=== PATIENT | male | born 1940 | race Caucasian/White ===

== ENCOUNTER 2021-02-15 10:08 | Outpatient (REF) | payer MEDICARE, OTHER, SELFPAY ==
--- NOTE | ~2021-02-15 | US_ITS ---
EXAMINATION: US EXTRACRANIAL CAROTID DUPLEX, BILATERAL CLINICAL INFORMATION: Infarct COMPARISON: Previous carotid ultrasound exam December 2019 TECHNIQUE: Real-time ultrasound and Doppler techniques (integrating B-mode 2-D vascular images, Doppler spectral analysis and color-flow Doppler imaging) were utilized to interrogate the extracranial carotid arteries, the vertebral arteries and proximal subclavian arteries bilaterally. The degree of stenosis is determined by criteria similar to NASCET. FINDINGS: Right Side: 1. There is moderate atherosclerotic plaque seen in the bifurcation/proximal ICA region. 2. The common carotid artery PSV proximally is 111 cm/s and distally 96 cm/s. 3. The proximal internal carotid artery velocities are 183 cm/s systolic and 49 cm/s diastolic. 4. The proximal external carotid artery PSV is elevated measuring 288 cm/s. 5. The vertebral artery shows antegrade flow. 6. The subclavian artery waveforms are normal. Left Side: 1. There is mild atherosclerotic plaque seen in the bifurcation/proximal ICA region. 2. The common carotid artery PSV proximally is 132 cm/s and distally 93 cm/s. 3. The proximal internal carotid artery velocities are 59 cm/s systolic and 19 cm/s diastolic. 4. The proximal external carotid artery PSV is 109 cm/s. 5. The vertebral artery shows antegrade flow. 6. The subclavian artery waveforms are normal. US/US carotid duplex BI IMPRESSION: 1. RIGHT: Moderate plaque. 50-79% right ICA stenosis. Right ECA stenosis. 2. LEFT: Mild plaque. 0-49% left ICA stenosis. 3. There is no change in the category severity of disease when compared to the previous study dated December 2019.
== END 2021-02-15 10:09 | disposition home or self-care (01) ==
LOC: HO.US 10:08
PROVIDERS: PCP Surgery Vascular Surgery; Visit Provider Surgery Vascular Surgery
DX: Z86.73 Personal history of transient ischemic attack (TIA), and cerebral infarction without residual deficits (principal)
CPT/HCPCS: 93880

== ENCOUNTER → 2021-03-21 14:18 | Outpatient (BNVA) | payer MEDICARE, OTHER, SELFPAY | PROVIDERS: Visit Provider Surgery Vascular Surgery | DX: I65.23 Occlusion and stenosis of bilateral carotid arteries (principal) | CPT/HCPCS: 99212 ==

== ENCOUNTER 2022-04-05 14:07 | Outpatient (REF) | payer MEDICARE, OTHER, SELFPAY ==
--- NOTE | ~2022-04-05 | US_ITS ---
EXAMINATION: US EXTRACRANIAL CAROTID DUPLEX, BILATERAL CLINICAL INFORMATION: Carotid stenosis. COMPARISON: 02/15/2021 and 01/05/2020. TECHNIQUE: Real-time ultrasound and Doppler techniques (integrating B-mode 2-D vascular images, Doppler spectral analysis and color-flow Doppler imaging) were utilized to interrogate the extracranial carotid arteries, the vertebral arteries and proximal subclavian arteries bilaterally. The degree of stenosis is determined by criteria similar to NASCET. FINDINGS: RIGHT SIDE: 1. There is moderate atherosclerotic plaque seen in the bifurcation/proximal ICA region. 2. The common carotid artery PSV proximally is 103 cm/s and distally 95 cm/s. 3. The proximal internal carotid artery velocities are 232 cm/s systolic and 59 cm/s diastolic. 4. The proximal external carotid artery PSV is 365 cm/s consistent with a stenosis, seen previously as well. 5. The vertebral artery shows antegrade flow. 6. The subclavian artery waveforms are normal. LEFT SIDE: 1. There is mild atherosclerotic plaque seen in the bifurcation/proximal ICA region. 2. The common carotid artery PSV proximally is 130 cm/s and distally 111 cm/s. 3. The proximal internal carotid artery velocities are 103 cm/s systolic and 18 cm/s diastolic. 4. The proximal external carotid artery PSV is 86 cm/s. 5. The vertebral artery shows antegrade flow. 6. The subclavian artery waveforms are normal. US/US carotid duplex BI IMPRESSION: 1. RIGHT: Moderate, hemodynamically significant stenosis of the proximal right internal carotid artery corresponding to a 50-79% stenosis by velocity criteria. 2. LEFT: Minimal, non-hemodynamically significant stenosis of the proximal left internal carotid artery corresponding to a 0-49% stenosis by velocity criteria. 3. There is no change in the category severity of disease when compared to the previous study dated 02/15/2021.
== END 2022-04-05 14:08 | disposition home or self-care (01) ==
LOC: HO.US 14:07
PROVIDERS: Visit Provider Surgery Vascular Surgery
DX: I65.23 Occlusion and stenosis of bilateral carotid arteries (principal)
CPT/HCPCS: 93880

== ENCOUNTER → 2022-05-10 11:01 | Outpatient (BNVA) | payer MEDICARE, OTHER, SELFPAY | PROVIDERS: PCP Internal Medicine; Visit Provider Surgery Vascular Surgery | DX: I65.23 Occlusion and stenosis of bilateral carotid arteries (principal) | CPT/HCPCS: 99212 ==

== ENCOUNTER 2023-04-24 10:12 | Outpatient (REF) | payer MEDICARE, OTHER, SELFPAY ==
--- NOTE | ~2023-04-24 | US_ITS ---
EXAMINATION: US EXTRACRANIAL CAROTID DUPLEX, BILATERAL CLINICAL INFORMATION: Carotid stenosis. COMPARISON: 04/05/2022. TECHNIQUE: Real-time ultrasound and Doppler techniques (integrating B-mode 2-D vascular images, Doppler spectral analysis and color-flow Doppler imaging) were utilized to interrogate the extracranial carotid arteries, the vertebral arteries and proximal subclavian arteries bilaterally. The degree of stenosis is determined by criteria similar to NASCET. FINDINGS: Right Side: 1. There is moderate atherosclerotic plaque seen in the bifurcation/proximal ICA region. 2. The common carotid artery PSV proximally is 93 cm/s and distally 84 cm/s. 3. The proximal internal carotid artery velocities are 221 cm/s systolic and 56 cm/s diastolic. 4. The proximal external carotid artery PSV is 230 cm/s. 5. The vertebral artery shows antegrade flow. 6. The subclavian artery waveforms are normal. Left Side: 1. There is mild atherosclerotic plaque seen in the bifurcation/proximal ICA region. 2. The common carotid artery PSV proximally is 150 cm/s and distally 140 cm/s. 3. The proximal internal carotid artery velocities are 80 cm/s systolic and 25 cm/s diastolic. 4. The proximal external carotid artery PSV is 96 cm/s. 5. The vertebral artery shows antegrade flow. 6. The subclavian artery waveforms are normal. US/US carotid duplex BI IMPRESSION: 1. RIGHT: Moderate, hemodynamically significant stenosis of the proximal right internal carotid artery corresponding to a 50-79% stenosis by velocity criteria. 2. LEFT: Minimal, non-hemodynamically significant stenosis of the proximal left internal carotid artery corresponding to a 0-49% stenosis by velocity criteria. 3. There is no change in the category severity of disease when compared to the previous study dated 04/05/2022.
== END 2023-04-24 10:13 | disposition home or self-care (01) ==
LOC: HO.US 10:12
PROVIDERS: PCP Internal Medicine; Visit Provider Surgery Vascular Surgery
DX: I63.233 Cerebral infarction due to unspecified occlusion or stenosis of bilateral carotid arteries (principal)
CPT/HCPCS: 93880

== ENCOUNTER 2023-05-23 10:53 | Outpatient (AMB) | payer MEDICARE, OTHER, SELFPAY ==
[2023-05-23 10:53] VITALS: BP 104/60; BMI 22.3
--- NOTE | 2023-05-23 10:53 | MHC.OFFVIS ---
Intake Vital Signs 05/23/23 10:53 05/23/23 11:03 Height 5 ft 11 in Weight 160 lb BMI 22.3 BP 104/60 100/58 L Blood Pressure Location Rt brachial Lt brachial Position Sitting Sitting Intake Visit Reasons: fu carotid US Intake Note: 1 year follow up Carotid US 04/24/2023 for carotid stenosis. Over the past year he got a pacemaker, done by Dr. Johnson in [place]. No blurred vision, dizziness or loss of balance, feels good. No complaints Accompanied by: Self / Same As Patient Allergies No Known Allergies Allergy (Verified 05/23/23 11:00) HPI fu carotid US HPI Details Very pleasant 83-year-old gentleman presents for annual surveillance regarding his carotids. He most recently had a birthday and has had new significant issues in terms of his carotids. He denies any lateralizing signs or symptoms speech disturbances or visual difficulty. Of note, he has had a pacemaker performed at [facility] in the interim. He is being maintained on aspirin and statin. He remains active in actually goes to the gym 4 to 5 times a week with some cardio activity a as well. [facility] Medical History Gout Glaucoma BPH (benign prostatic hyperplasia) HTN (hypertension) Gall bladder stones Kidney stone Surgical History (Reviewed 05/23/23 @ 11: by SERG Ackerman) Hx of lithotripsy Hx of cholecystectomy Family History Father No problems noted. Mother No problems noted. Brother Dementia Brother No problems noted. Social History Patient Tobacco Use Status: Never used Tobacco Review of Systems Const All systems reviewed & are unremarkable except as noted in HPI and below Reports no additional complaints ENT Reports Normal hearing present Card Denies chest pain, Denies chest pain at rest, Denies chest pain with activity and Denies pedal edema Resp Denies cough GI Denies abdominal pain Musc Denies abnormal gait, Denies muscle cramps and Denies radiating pain into limb Skin/Breast Denies skin ulcer and Denies wounds Neuro Reports Normal hearing present and Denies abnormal gait Psych Reports no additional complaints Physical Exam Vital Signs: Last Vital Signs BP 100/58 L 05/23/23 11:03 BMI result Body Mass Index 22.3 Const General: cooperative, healthy appearing and comfortable Orientation/consciousness: oriented to person, oriented to place and oriented to time HEENT Head: Yes normal to inspection Neck Neck: Yes normal visual inspection Carotids: no bruits Chest Chest palpation & inspection: normal inspection of the chest Resp Effort & Inspection: normal respiratory effort and able to speak in complete sentences Auscultation: clear to auscultation bilaterally, no crackles, no rales, no rhonchi and no wheezes Cardio Rate: regular rate Rhythm: regular rhythm Heart sounds: S1 normal heart sound present and S2 normal heart sound present Bruits: no carotid bruits Peripheral pulses: Peripheral pulses 2+ throughout GI Inspection: Yes normal to inspection Skin Wounds: no wounds Hair: normal Neuro General: oriented to person, oriented to place and oriented to time Cranial nerves: Yes CN's II-XII intact bilaterally and Yes Normal hearing present Cognition (Neuro): normal cognition Motor exam (neuro): 5/5 motor strength present throughout Extrem Other: venous exam: No significant superficial varicosities or spider telangiectasias, minimal edema General: No clubbing, No cyanosis and No edema Psych Appearance: grossly normal Mental Status: mental status grossly normal Speech and movement: Normal speech and movement present Results Reviewed Results Reviewed: Carotid ultrasound dated 04/24/2023 demonstrates right-sided stenosis of 50-79% with a peak systolic of 221 and left-sided 0-49% stenosis Assessment & Plan Assessment & Plan (1) Carotid stenosis, bilateral: Code(s): I65.23 - Occlusion and stenosis of bilateral carotid arteries Plan: In short patient has asymptomatic carotid disease. We have reviewed signs and symptoms of a stroke. We also discussed risk factor modification inclusive a healthy diet low in cholesterol. The patient will follow up with us with surveillance ultrasound of the carotids 1 year. Should there be any changes or signs or symptoms of a stroke we will be happy to see them back sooner. Thank you for allowing us to participate in this patient's care. If there are any questions or concerns please do not hesitate to contact us. Orders: Orders US carotid duplex BI 364 Days I65.23 - Occlusion and stenosis of bilateral carotid arteries Coding Level of Care Code Est Pt Level 4 (83153) Diagnoses Carotid stenosis, bilateral I65.23
[2023-05-23 11:03] VITALS: BP 100/58
== END 2023-05-23 11:35 | disposition home or self-care (01) ==
PROVIDERS: PCP Internal Medicine; Visit Provider Surgery Vascular Surgery
DX: I65.23 Occlusion and stenosis of bilateral carotid arteries (principal)
CPT/HCPCS: 99213

== ENCOUNTER → 2023-05-23 10:53 | Outpatient (BNVA) | payer MEDICARE, OTHER, SELFPAY | PROVIDERS: PCP Internal Medicine; Visit Provider Surgery Vascular Surgery | DX: I65.23 Occlusion and stenosis of bilateral carotid arteries (principal); Z95.0 Presence of cardiac pacemaker; Z79.82 Long term (current) use of aspirin; Z79.899 Other long term (current) drug therapy | CPT/HCPCS: 99212 ==

== ENCOUNTER 2024-05-22 12:33 | Outpatient (REF) | payer MEDICARE, OTHER, SELFPAY | END 2024-05-22 12:34 | disposition home or self-care (01) | LOC: HO.US 12:33 | PROVIDERS: PCP Internal Medicine; Visit Provider Surgery Vascular Surgery | DX: I65.23 Occlusion and stenosis of bilateral carotid arteries (principal) | CPT/HCPCS: 93880 ==

== ENCOUNTER 2024-06-04 10:28 | Outpatient (AMB) | payer MEDICARE, OTHER, SELFPAY ==
--- OUTSIDE RECORDS SUMMARY | 2024-06-04 10:33 | XMS_ITS ---
Author Name [facility] [place] Organization [facility] [place] [place] Address [address] [place] [id number] Care Team Providers Care Coiled Coil Inspector Name Role Phone CORA WELLS [facility] Insurance Providers: All historical and current Section Date Range: From patient's date of to the date document was created. This section includes the names of all active insurance providers for the patient. Insurance Provider Type of Coverage Plan Name Start of Policy Coverage End of Policy Coverage Group Number Member ID Insurance Provider's Telephone Number Policy Martínez's Name Patient's Relationship to Policy Martínez MEDICARE (WNR) MEDICARE (M) PART A Apr 24, 2006 PART A [id number] Elisa FELICIANO PATIENT MEDICARE (WNR) MEDICARE (M) PART B Apr 24, 2006 PART B [id number] Elisa FELCIIANO PATIENT Selected Encounter This section includes the information on record at [place] for the Encounter. Date/Time Encounter Type Encounter Description Reason Pro vider Source Jan 02, 2024 09:05 AM Outpatient Encounter ADMIN PAT ACTIVTIES (MASNONCT) [facility] Encounter Template Text not used by [place] Plan of Treatment: Future Appointments (+ 6 months) and Future Tests (+/- 45 days) The Plan of Treatment section includes future care activities for the patient from all [facility] treatment[facility]ilities. This section includes future appointments and future orders which are active, pending or scheduled. Future Appointments This section includes appointments that were scheduled to occur 6 months from the date of the Encounter, up to a maximum of 20 appointments. The data comes from all [place] treatment facilities. Appointment Date/Time Appointment Type Appointme nt Facility Name Jan 28, 2024 10:00 AM AMBULATORY - MEDICINE [facility] Encounter Notes: All associated encounter notes This section contains the clinical notes associated to the Encounter. Date/Time Encounter Note(s) Provider Source Jan 02, 2024 09:05 AM ADMINISTRATIVE NOT E: LOCAL TITLE: CCC: SCHEDULING ADMINISTRATION STANDARD TITLE: ADMINISTRATIVE NOTE DATE OF NOTE: JAN 02, 2024@09:05:07 ENTRY DATE: JAN 02, 2024@09:05:08 AUTHOR: IVANA BOOGIE COSIGNER: URGENCY: STATUS: COMPLETED Patient Demographics Patient Name: MARIANO FELICIANO Patient Primary Phone: [phone] Patient Primary Address: [address] [place] [id number] Patient : 1940 Patient Age: 83 Caller/Recipient Relation to Patient: Self Scheduling Patient Expects Callback: Yes Open Request: None of the above Administrative Administrative Note Reason: Other Administrative Note Comments: Patient is requesting a call back, about getting a PACT /morena/ IVANA BOOGIE VISN1 [facility] Signed: 01/02/2024 09:05 Receipt Acknowledged By: 01/03/2024 06:27 /es/ IRAIDA RODRIGUEZ MSA MACHINE ROOM ENGINEER, [facility] 01/09/2024 17:05 /es/ LUIGI CARRANZA MACHINE ROOM ENGINEER [facility] 01/02/2024 12:05 /es/ Alexa Coleman ADVANCED CASE FINISHER for IVANA LEHMAN [facility]
--- OUTSIDE RECORDS SUMMARY | 2024-06-04 10:33 | XMS_ITS | Encounter Summary ---
Author Name [facility] [place] [facility] [place] Address [address] [place] [id number] Care Team Providers Care Vocational Psychologist Name Role Phone CORA WELLS Primary Care Provider Unavailabl e Insurance Providers: All historical and current [...] PART A Apr 24, 2006 PART A [id number] Elisa FELICIANO PATIENT MEDICARE (WNR) MEDICARE (M) PART B Apr 24, 2006 PART B [id number] DAMARISLATASHALUIGIElisaDAVE PATIENT Selected Encounter This section includes the information on record at [place] for the Encounter. Date/Time Encounter Type Encounter Description Reason Pro vider Source Jan 28, 2024 10:49 AM Outpatient Encounter PRIMARY CARE/MEDICINE [facility] Encounter Template Text not used by [facility] Lab Results: +/- 30 days of the encounter This section includes the Chemistry and Hematology Lab Results on record with [place] for the patient. Radiology Reports and Pathology Reports are provided separately, in subsequent sections. Lab Results This section contains the Chemistry/Hematology Results that were resulted 30 days before or 30 daysafter the date of the Encounter. Date/Time Source Result Type Result - Unit Interpretation Reference Range Comment Feb 03, 2024 10:03 AM [facility] BASIC METABOLIC PANEL (fasting) Specime n Type: SERUM No comment entered. Ordering Provider: CORA WELLS Report Released Date/Time: Feb 03, 2024 09:44 AM Reporting Lab: [facility] [address] [facility] [address] Performing Lab: [address] [address] UREA NITROGEN 18 mg/dL 7-25 GLUCOSE 103 mg/dL H 65-100 SODIUM 138 mmol/L 135-145 POTASSIUM 4.0 mmol/L 3.5-5.0 CHLORIDE 106 mmol/L 100-110 CO2 24 meq/L 20-30 CREATININE, Serum 0.88 mg/dL 0.50-1.40 eGFR(CKD-EPI 2020) 85 mL/min >60 Feb 03, 2024 10:03 AM [facility] LIPID PANEL FASTING Specimen Type: SERUM No comment entered. Ordering Provider: CORA WELLS Report Released Date/Time: Feb 03, 2024 09:44 AM Reporting Lab: [facility] [address] [facility] [address] Performing Lab: [facility] [address] [facility] [address] CHOLESTEROL 144 mg/dL TRIGLYCERIDE 98 mg/dL 0-150 LDL calculated 87 mg/dL 0-129 CHOL/HDL 3.9 HDL CHOLESTEROL 37 mg/dL L 40-60 Feb 03, 2024 10:03 AM [facility] LIVER FUNCTION Specimen Type: SERUM No comment entered. Ordering Provider: CORA WELLS Report Released Date/Time: Feb 03, 2024 09:44 AM Reporting Lab: [facility] [address] [facility] [address] Performing Lab: [address] [address] PROTEIN,TOTAL 6.8 g/dL 6.0-8.3 ALBUMIN 4.0 g/dL 3.5-5.0 ALKALINE PHOSPHATASE 95 U/L 40-150 AST 13 U/L 5-34 ALT 15 U/L BILIRUBIN, TOTAL 0.8 mg/dL 0.2-1.2 Feb 03, 2024 10:03 AM [facility] CBC AND DIFF (AUTO) Specimen Type: BLOOD No comment entered. Ordering Provider: CORA WELLS Report Released Date/Time: Feb 03, 2024 09:44 AM Reporting Lab: [facility] [address] [facility] [address] Performing Lab: [facility] [address] [facility] [address] WBC 5.77 10*3/uL 4.50-11.00 RBC 4.38 10*6/uL 4.23-5.66 HGB 13.3 g/dL 12.8-17 HCT 38.8 L 39.2-50.4 MCV 88.6 fL 82-99 MCHC 34.3 g/dL 30.8-35.1 PLT 251 10*3/uL 140-360 RDW-CV 13.1 12.0-16.0 MONO, ABS 0.58 10*3/uL 0.30-1.10 MCH 30.4 pg 26.2-32.6 NEUT % 53.0 43.7-75.8 LYMPH % 32.8 14.0-42.3 MONO % 10.1 5.1-13.7 EOS % 2.8 0.4-6.8 BASO % 1.0 0.1-2.0 NEUT, ABS 3.06 10*3/uL 2.20-7.60 LYMPH, ABS 1.89 10*3/uL 1.00-3.20 EOS, ABS 0.16 10*3/uL 0.03-0.44 BASO, ABS 0.06 10*3/uL 0.01-0.13 IMMATURE GRAN % 0.3 0.0-0.7 IMMATURE GRAN, ABS 0.02 10*3/uL 0.00-0.06 NRBC % 0.0 0.0-0.0 NRBC, ABS 0.00 10*3/uL 0.00-0.00 Feb 03, 2024 10:03 AM [facility] HEMOGLOBIN A1C PANEL Specimen Type: BLOOD Comment: Values obtained from A1C measurements can vary. For atypical A1C assays, a reported value of 7.0 could actually be between 6.72 and 7.28 if measured by a reference method. A reported value of 9.0 could actually be between 8.73 and 9.27. Ref: http://www.ngs p.org/CAPdata. asp Ordering Provider: COAR WELLS Report Released Date/Time: Feb 03, 2024 09:44 AM Reporting Lab: [facility] [place] [facility] [address] [facility] [address] Performing Lab: [facility] [address] [address] HEMOGLOBIN A1C 5.7 H 4.0-5.6 Feb 03, 2024 10:03 AM [facility] TSH Specimen Type: SERUM No comment entered. Ordering Provider: CORA WELLS Report Released Date/Time: Feb 03, 2024 09:44 AM Reporting Lab: [facility] [address] [address] Performing Lab: [facility] [address] [address] TSH 1.15 u[IU]/mL 0.35-5.00 Feb 03, 2024 10:03 AM [facility] CALCIUM Specimen Type: SERUM No comment entered. Ordering Provider: CORA WELLS Report Released Date/Time: Feb 03, 2024 09:44 AM Reporting Lab: [facility] [address] [address] Performing Lab: [facility] [address] [address] CALCIUM 9.7 mg/dL 8.5-10.2 Feb 03, 2024 10:03 AM [facility] URIC ACID Specimen Type: SERUM No comment entered. Ordering Provider: CORA WELLS Report Released Date/Time: Feb 03, 2024 09:44 AM Reporting Lab: [facility] [place] [address] [address] Performing Lab: [facility] [address] [address] URIC ACID 5.0 mg/dL 3.5-7.2 Feb 03, 2024 10:03 AM [facility] RETICULOCYTES Specimen Type: BLOOD No comment entered. Ordering Provider: CORA WELLS Report Released Date/Time: Feb 03, 2024 09:44 AM Reporting Lab: [facility] [address] [facility] [address] Performing Lab: [facility] [address] [facility] [address] RETIC % 1.2 0.6-2.0 RETIC, ABS 53.9 10*3/uL 30.0-90.0 RET-HE % 34.3 27.9-42.0 Feb 03, 2024 10:03 AM [facility] FERRITIN Specimen Type: SERUM No comment entered. Ordering Provider: CORA WELLS Report Released Date/Time: Feb 03, 2024 09:44 AM Reporting Lab: [facility] [address] [facility] [address] Performing Lab: [address] [address] FERRITIN 259 ng/mL 20-300 Feb 03, 2024 10:03 AM [facility] MICROALBUMIN CREATININE RATIO PANEL Spe cimen Type: URINE No comment entered. Ordering Provider: CORA WELLS Report Released Date/Time: Feb 03, 2024 09:44 AM Reporting Lab: [address] [address] Performing Lab: [address] [address] MICROALBUMIN/CR EATININE RATIO canc mg/g 0-29.9 MICROALBUMIN,QU ANTITATIVE < 0.5 mg/dL RR UNAVAIL CREATININE URINE 78.18 mg/dL Feb 03, 2024 10:03 AM [facility] URINALYSIS Specimen Type: URINE Comment: If Glucose = >500 and Ketones are positive, please alert the Physician. Ordering Provider: CORA WELLS Report Released Date/Time: Feb 03, 2024 09:44 AM Reporting Lab: [address] [address] Performing Lab: [address] [address] UA COLOR Light-Yellow Yellow UA APPEARANCE Clear Clear UA GLUCOSE Normal mg/dL Negative UA KETONES NEGATIVE mg/dL Negative UA BLOOD NEGATIVE mg/dL Negative UA PROTEIN NEGATIVE mg/dL Negative UA NITRITE NEGATIVE mg/dL Negative UA BILIRUBIN NEGATIVE mg/dL Negative UA SPECIFIC GRAVITY 1.018 1.016-1.02 2 UA pH 6.0 5.0-9.0 UA UROBILINOGEN Normal mg/dL <2.0 UA LEUKOCYTE NEGATIVE Negative Feb 03, 2024 10:03 AM [facility] VITAMIN B12 Specimen Type: SERUM No comment entered. Ordering Provider: CORA WELLS Report Released Date/Time: Feb 03, 2024 09:44 AM Reporting Lab: [address] [phone] Performing Lab: [address] [address] VITAMIN B12 600 pg/mL 200-900 Feb 03, 2024 10:03 AM [facility] VITAMIN D (25-OH) Specimen Type: SERUM No comment entered. Ordering Provider: CORA WELLS Report Released Date/Time: Feb 03, 2024 09:44 AM Reporting Lab: [address] [address] Performing Lab: [address] [address] VITAMIN D (25-OH) 73 ng/mL H 20-50 Encounter Notes: All associated encounter notes This section contains the clinical notes associated to the Encounter. Date/Time Encounter Note(s) Provider Source Jan 28, 2024 10:49 AM CLINICAL WARNING: LOCAL TITLE: COMMUNICATION AUTHORIZATION STANDARD TITLE: CLINICAL WARNING DATE OF NOTE: JAN 28, 2024@10:49 ENTRY DATE: JAN 28, 2024@10:49:30 AUTHOR: JENNIFER SHARPE EXP COSIGNER: URGENCY: STATUS: COMPLETED Family/Caregiver Name: Primary: Samira Rodriguez Secondary: Nancy Newell Tertiary: Authorized Clinic & Topics: All Clinic's & Topics: All Care/Coordination, Scheduling Appointments, Prescriptions, Test Results, Other: Primary Care: Mental Health: Specialty Care: [id number] Protected Info: [ ] Drug Abuse [ ] Alcohol Abuse [ ] HIV [ ] Sickle Cell Expiration: Date: [ ] At [X] Through [ ] At end of care // ARNULFO SHARPE [employer] Subscription Solicitor Signed: 01/28/2024 10:51 ARNULFO SHARPE [facility]
--- OUTSIDE RECORDS SUMMARY | 2024-06-04 10:33 | XMS_ITS | Encounter Summary ---
Author Name [facility] [place] Organization [place] Address [address] [place] [id number] Care Team Providers Care Flexo Operator Name Role Phone CORA WELLS Primary Care [...] PART A Apr 24, 2006 PART A [id number] lEisa FELICIANO PATIENT MEDICARE (WNR) MEDICARE (M) PART B Apr 24, 2006 PART B [id number] JODIEElisa DIAZ PATIENT Selected Encounter This section includes the information on record at [place] for the Encounter. Date/Time Encounter Type Encounter Description Reason Pro vider Source Feb 03, 2024 09:12 AM Outpatient Encounter CLINICAL PHARMACY [facility] Encounter Template Text not used by [place] Lab Results: +/- 30 days of the encounter This section includes the Chemistry and Hematology Lab Results on record with [place] for the patient. Radiology Reports and Pathology Reports are provided separately, in subsequent sections. Lab Results This section contains the Chemistry/Hematology Results that were resulted 30 days before or 30 daysafter the date of the Encounter. Date/Time Source Result Type Result - Unit Interpretation Reference Range Comment Feb 03, 2024 10:03 AM [facility] BASIC METABOLIC PANEL (fasting) Specime n Type: SERUM No comment entered. Ordering Provider: CORA WELLS Report Released Date/Time: Feb 03, 2024 09:44 AM Reporting Lab: [address] [address] Performing Lab: [address] [address] UREA NITROGEN 18 mg/dL 7-25 GLUCOSE 103 mg/dL H 65-100 SODIUM 138 mmol/L 135-145 POTASSIUM 4.0 mmol/L 3.5-5.0 CHLORIDE 106 mmol/L 100-110 CO2 24 meq/L 20-30 CREATININE, Serum 0.88 mg/dL 0.50-1.40 eGFR(CKD-EPI 2020) 85 mL/min >60 Feb 03, 2024 10:03 AM [facility] LIPID PANEL FASTING Specimen Type: SERUM No comment entered. Ordering Provider: CORA WELLS Report Released Date/Time: Feb 03, 2024 09:44 AM Reporting Lab: [address] [address] Performing Lab: [address] [address] CHOLESTEROL 144 mg/dL TRIGLYCERIDE 98 mg/dL 0-150 LDL calculated 87 mg/dL 0-129 CHOL/HDL 3.9 HDL CHOLESTEROL 37 mg/dL L 40-60 Feb 03, 2024 10:03 AM [facility] LIVER FUNCTION Specimen Type: SERUM No comment entered. Ordering Provider: CORA WELLS Report Released Date/Time: Feb 03, 2024 09:44 AM Reporting Lab: [address] [address] Performing Lab: [address] [address] PROTEIN,TOTAL 6.8 g/dL 6.0-8.3 ALBUMIN 4.0 g/dL 3.5-5.0 ALKALINE PHOSPHATASE 95 U/L 40-150 AST 13 U/L 5-34 ALT 15 U/L BILIRUBIN, TOTAL 0.8 mg/dL 0.2-1.2 Feb 03, 2024 10:03 AM [facility] CBC AND DIFF (AUTO) Specimen Type: BLOOD No comment entered. Ordering Provider: CORA WELLS Report Released Date/Time: Feb 03, 2024 09:44 AM Reporting Lab: [facility] [address] [facility] [address] Performing Lab: [facility] [address] [facility] [address] WBC 5.77 10*3/uL 4.50-11.00 RBC 4.38 10*6/uL [...] 10*3/uL 0.00-0.00 Feb 03, 2024 10:03 AM [facility] HEMOGLOBIN A1C PANEL Specimen Type: BLOOD Comment: Values obtained from A1C measurements can vary. For atypical A1C assays, a reported value of 7.0 could actually be between 6.72 and 7.28 if measured by a reference method. A reported value of 9.0 could actually be between 8.73 and 9.27. Ref: http://www.Loc[employer] p.org/CAPdata. asp Ordering Provider: CORA WELLS Report Released Date/Time: Feb 03, 2024 09:44 AM Reporting Lab: [facility] [place] [facility] [address] [facility] [address] Performing Lab: [facility] [address] [facility] [address] HEMOGLOBIN A1C 5.7 H 4.0-5.6 Feb 03, 2024 10:03 AM [facility] TSH Specimen Type: SERUM No comment entered. Ordering Provider: CORA WELLS Report Released Date/Time: Feb 03, 2024 09:44 AM Reporting Lab: [facility] [place] [facility] [address] [facility] [address] Performing Lab: [facility] [address] [address] TSH 1.15 u[IU]/mL 0.35-5.00 Feb 03, 2024 10:03 AM [facility] CALCIUM Specimen Type: SERUM No comment entered. Ordering Provider: CORA WELLS Report Released Date/Time: Feb 03, 2024 09:44 AM Reporting Lab: [facility] [place] [facility] [address] [facility] [address] Performing Lab: [facility] [address] [address] CALCIUM 9.7 mg/dL 8.5-10.2 Feb 03, 2024 10:03 AM [facility] URIC ACID Specimen Type: SERUM No comment entered. Ordering Provider: CORA WELLS Report Released Date/Time: Feb 03, 2024 09:44 AM Reporting Lab: [facility] [place] [facility] [address] [facility] [address] Performing Lab: [facility]ITAL[facility] [address] [address] URIC ACID 5.0 mg/dL 3.5-7.2 Feb 03, 2024 10:03 AM [facility] RETICULOCYTES Specimen Type: BLOOD No comment entered. Ordering Provider: CORA WELLS Report Released Date/Time: Feb 03, 2024 09:44 AM Reporting Lab: [facility] [address] Performing Lab: [address] [address] RETIC % 1.2 0.6-2.0 RETIC, ABS 53.9 10*3/uL 30.0-90.0 RET-HE % 34.3 27.9-42.0 Feb 03, 2024 10:03 AM [facility] FERRITIN Specimen Type: SERUM No comment entered. Ordering Provider: CORA WELLS Report Released Date/Time: Feb 03, 2024 09:44 AM Reporting Lab: [address] [address] Performing Lab: [address] [address] FERRITIN 259 ng/mL 20-300 Feb 03, 2024 10:03 AM [facility] MICROALBUMIN CREATININE RATIO PANEL Spe cimen Type: URINE No comment entered. Ordering Provider: CORA WELLS Report Released Date/Time: Feb 03, 2024 09:44 AM Reporting Lab: [address] [address] Performing Lab: [address] [address] MICROALBUMIN/CR EATININE RATIO canc mg/g 0-29.9 MICROALBUMIN,QU ANTITATIVE < 0.5 mg/dL RR UNAVAIL CREATININE URINE 78.18 mg/dL Feb 03, 2024 10:03 AM [facility] URINALYSIS Specimen Type: URINE Comment: If Glucose = >500 and Ketones are positive, please alert the Physician. Ordering Provider: CORA WELLS Report Released Date/Time: Feb 03, 2024 09:44 AM Reporting Lab: [address] [address] Performing Lab: [address] [address] UA COLOR Light-Yellow Yellow UA APPEARANCE Clear Clear UA GLUCOSE Normal mg/dL Negative UA KETONES NEGATIVE mg/dL Negative UA BLOOD NEGATIVE mg/dL Negative UA PROTEIN NEGATIVE mg/dL Negative UA NITRITE NEGATIVE mg/dL Negative UA BILIRUBIN NEGATIVE mg/dL Negative UA SPECIFIC GRAVITY 1.018 1.016-1.02 2 UA pH 6.0 5.0-9.0 UA UROBILINOGEN Normal mg/dL <2.0 UA LEUKOCYTE NEGATIVE Negative Feb 03, 2024 10:03 AM [facility] VITAMIN B12 Specimen Type: SERUM No comment entered. Ordering Provider: CORA WELLS Report Released Date/Time: Feb 03, 2024 09:44 AM Reporting Lab: [address] [address] Performing Lab: [address] [address] VITAMIN B12 600 pg/mL 200-900 Feb 03, 2024 10:03 AM [facility] VITAMIN D (25-OH) Specimen Type: SERUM No comment entered. Ordering Provider: CORA WELLS Report Released Date/Time: Feb 03, 2024 09:44 AM Reporting Lab: [address] [address] Performing Lab: [address] [address] VITAMIN D (25-OH) 73 ng/mL H 20-50 Encounter Notes: All associated encounter notes This section contains the clinical notes associated to the Encounter. Date/Time Encounter Note(s) Provider Source Feb 03, 2024 09:12 AM PRIMARY CARE NOTE: LOCAL TITLE: WALK-IN NOTE PRIMARY CARE (T) STANDARD TITLE: PRIMARY CARE NOTE DATE OF NOTE: FEB 03, 2024@09:12 ENTRY DATE: FEB 03, 2024@09:12:43 AUTHOR: MEJIA FULLER EXP COSIGNER: URGENCY: STATUS: COMPLETED <====Click to Start Advanced Medical Support [place] presents to the Primary Care clinic with the following request: [ X ]Medication Renewal/Refill [ ]Consultation with Team RN [ ]Symptoms [ ]Other The [place] states they are: [ ]Waiting [ X ]Not Waiting No Walk in visit scheduled with PACT Nurse [ X ] At this encounter the [place]'s demographics were verified. [ X ] At this encounter the [place]'s Insurance information was verified. [ X ] At this encounter the below scheduled visits for the were discussed and appointment reminder card was offered. Future appointments: 01/25/2025 10:00 CWM/SO/PACT 3 [facility] Vet requesting medication APIZABAN 5MG be preiscribed. Script placed in provider mailbox for review. /morena/ MEJIA CARTWRIGHT Signed: 02/03/2024 09:14 Receipt Acknowledged By: 02/05/2024 11:09 /es/ [place] Alcantara, JIM Registered Nurse (RN) 02/04/2024 13:53 /es/ CORA WELLS PA-C STAFF PHYSICIAN [employer] CONSULTANT 02/03/2024 09:35 /morena/ SILVIA SNYDER LPN LICENSED PRACTICAL NURSE MEJIA FULLERFIELD
--- OUTSIDE RECORDS SUMMARY | 2024-06-04 10:33 | XMS_ITS ---
Author Name [facility] [place] [facility] [place] Organization [facility] [place] Address [address] [place] [address] Care Team Providers Care Founder Name Role Phone CORA WELLS Primary Care [...] PART A Apr 24, 2006 PART A [id number] Elisa FELICIANO PATIENT MEDICARE (WNR) MEDICARE (M) PART B Apr 24, 2006 PART B [id number] Elisa FELICIANO PATIENT Selected Encounter This section includes the information on record at [place] for the Encounter. Date/Time Encounter Type Encounter Description Reason Provider Source Feb 05, 2024 08:16 AM MTMS BY PHARM LATHE SET UP PERSON 15 MIN TELEPHONE/ANCILL EMERITA ICD-10-CM Z79.01 USP (current) use of anticoagulants BARI PERSON Milind Encounter Template Text not used by [place] Assessments - Encounter Diagnoses This section includes the primary and secondary diagnoses documented for the Encounter. 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 Radiology Reports and Pathology Reports are provided separately, in subsequent sections. Lab Results This section contains the Chemistry/Hematology Results that were resulted 30 days before or 30 daysafter the date of the Encounter. Date/Time Source Result Type Result - Unit Interpretation Reference Range Comment Feb 03, 2024 10:03 AM [place] BASIC METABOLIC PANEL (fasting) Specime n Type: SERUM No comment entered. Ordering Provider: CORA WELLS Report Released Date/Time: Feb 03, 2024 09:44 AM Reporting Lab: [address] [address] Performing Lab: [address] [address] UREA NITROGEN 18 mg/dL 7-25 GLUCOSE 103 mg/dL H 65-100 SODIUM 138 mmol/L 135-145 POTASSIUM 4.0 mmol/L 3.5-5.0 CHLORIDE 106 mmol/L 100-110 CO2 24 meq/L 20-30 CREATININE, Serum 0.88 mg/dL 0.50-1.40 eGFR(CKD-EPI 2020) 85 mL/min >60 Feb 03, 2024 10:03 AM [place] LIPID PANEL FASTING Specimen Type: SERUM No comment entered. Ordering Provider: CORA WELLS Report Released Date/Time: Feb 03, 2024 09:44 AM Reporting Lab: [address] [address] Performing Lab: [address] [address] CHOLESTEROL 144 mg/dL TRIGLYCERIDE 98 mg/dL 0-150 LDL calculated 87 mg/dL 0-129 CHOL/HDL 3.9 HDL CHOLESTEROL 37 mg/dL L 40-60 Feb 03, 2024 10:03 AM [place] LIVER FUNCTION Specimen Type: SERUM No comment entered. Ordering Provider: CORA WELLS Report Released Date/Time: Feb 03, 2024 09:44 AM Reporting Lab: [address] [address] Performing Lab: [address] [address] PROTEIN,TOTAL 6.8 g/dL 6.0-8.3 ALBUMIN 4.0 g/dL 3.5-5.0 ALKALINE PHOSPHATASE 95 U/L 40-150 AST 13 U/L 5-34 ALT 15 U/L BILIRUBIN, TOTAL 0.8 mg/dL 0.2-1.2 Feb 03, 2024 10:03 AM [place] CBC AND DIFF (AUTO) Specimen Type: BLOOD No comment entered. Ordering Provider: CORA WELLS Report Released Date/Time: Feb 03, 2024 09:44 AM Reporting Lab: [address] [address] Performing Lab: [address] [address] WBC 5.77 10*3/uL 4.50-11.00 RBC 4.38 10*6/uL [...] 10*3/uL 0.00-0.00 Feb 03, 2024 10:03 AM [place] HEMOGLOBIN A1C PANEL Specimen Type: BLOOD Comment: Values obtained from A1C measurements can vary. For atypical A1C assays, a reported value of 7.0 could actually be between 6.72 and 7.28 if measured by a reference method. A reported value of 9.0 could actually be between 8.73 and 9.27. Ref: http://www.ngs p.org/CAPdata. asp Ordering Provider: CORA WELLS Report Released Date/Time: Feb 03, 2024 09:44 AM Reporting [facility]: [facility] [address] [address] Performing Lab: [address] [address] HEMOGLOBIN A1C 5.7 H 4.0-5.6 Feb 03, 2024 10:03 AM [place] TSH Specimen Type: SERUM No comment entered. Ordering Provider: CORA WELLS Report Released Date/Time: Feb 03, 2024 09:44 AM Reporting Lab: [facility] [address] Performing [facility]: [facility] [address] TSH 1.15 u[IU]/mL 0.35-5.00 Feb 03, 2024 10:03 AM [place] CALCIUM Specimen Type: SERUM No comment entered. Ordering Provider: CORA WELLS Report Released Date/Time: Feb 03, 2024 09:44 AM Reporting Lab: [facility] [address] Performing [facility]: [facility] [address] CALCIUM 9.7 mg/dL 8.5-10.2 Feb 03, 2024 10:03 AM [place] URIC ACID Specimen Type: SERUM No comment entered. Ordering Provider: CORA WELLS Report Released Date/Time: Feb 03, 2024 09:44 AM Reporting Lab: [facility] [address] [facility] [address] Performing Lab: [address] [address] URIC ACID 5.0 mg/dL 3.5-7.2 Feb 03, 2024 10:03 AM [place] RETICULOCYTES Specimen Type: BLOOD No comment entered. Ordering Provider: CORA WELLS Report Released Date/Time: Feb 03, 2024 09:44 AM Reporting Lab: [facility] [address] [facility] [address] Performing Lab: [address] [address] RETIC % 1.2 0.6-2.0 RETIC, ABS 53.9 10*3/uL 30.0-90.0 RET-HE % 34.3 27.9-42.0 Feb 03, 2024 10:03 AM [place] FERRITIN Specimen Type: SERUM No comment entered. Ordering Provider: CORA WELLS Report Released Date/Time: Feb 03, 2024 09:44 AM Reporting Lab: [address] [address] Performing Lab: [address] [address] FERRITIN 259 ng/mL 20-300 Feb 03, 2024 10:03 AM [place] MICROALBUMIN CREATININE RATIO PANEL Spe cimen Type: URINE No comment entered. Ordering Provider: CORA WELLS Report Released Date/Time: Feb 03, 2024 09:44 AM Reporting Lab: [address] [address] Performing Lab: [address] [address] MICROALBUMIN/CR EATININE RATIO canc mg/g 0-29.9 MICROALBUMIN,QU ANTITATIVE < 0.5 mg/dL RR UNAVAIL CREATININE URINE 78.18 mg/dL Feb 03, 2024 10:03 AM [place] URINALYSIS Specimen Type: URINE Comment: If Glucose = >500 and Ketones are positive, please alert the Physician. Ordering Provider: CORA WELLS Report Released Date/Time: Feb 03, 2024 09:44 AM Reporting Lab: [address] [address] Performing Lab: [address] [address] UA COLOR Light-Yellow Yellow UA APPEARANCE Clear Clear UA GLUCOSE Normal mg/dL Negative UA KETONES NEGATIVE mg/dL Negative UA BLOOD NEGATIVE mg/dL Negative UA PROTEIN NEGATIVE mg/dL Negative UA NITRITE NEGATIVE mg/dL Negative UA BILIRUBIN NEGATIVE mg/dL Negative UA SPECIFIC GRAVITY 1.018 1.016-1.02 2 UA pH 6.0 5.0-9.0 UA UROBILINOGEN Normal mg/dL <2.0 UA LEUKOCYTE NEGATIVE Negative Feb 03, 2024 10:03 AM [place] VITAMIN B12 Specimen Type: SERUM No comment entered. Ordering Provider: CORA WELLS Report Released Date/Time: Feb 03, 2024 09:44 AM Reporting Lab: [address] [address] Performing Lab: [address] [address] VITAMIN B12 600 pg/mL 200-900 Feb 03, 2024 10:03 AM [place] VITAMIN D (25-OH) Specimen Type: SERUM No comment entered. Ordering Provider: CORA WELLS Report Released Date/Time: Feb 03, 2024 09:44 AM Reporting Lab: [address] [address] Performing Lab: [address] [address] VITAMIN D (25-OH) 73 ng/mL H 20-50 Encounter Notes: All associated encounter notes This section contains the clinical notes associated to the Encounter. Date/Time Encounter Note(s) Provider Source Feb 05, 2024 08:16 AM PHARMACY MEDICATIO N MGT CONSULT: LOCAL TITLE: CONSULT REPORT/ANTICOAGULATION CLINIC STANDARD TITLE: PHARMACY MEDICATION MGT CONSULT DATE OF NOTE: FEB 05, 2024@08:16 ENTRY DATE: FEB 05, 2024@08:16:41 AUTHOR: BARI PERSON EXP COSIGNER: URGENCY: STATUS: COMPLETED Initial Note: Anticoagulation DOAC Agent Progress Note Reason for visit: Initial Education for Apixaban/Eliquis Indication: Atrial fibrillation Start Date: 11/2023 Expected Duration: Indefinite Referring Provider: Martin Patient Contact: Patient has given permission to leave anticoagulation message on answering machine or with person listed. Subjective: Called for initial education on apixaban. States he was started on apixaban 11/2023 after an ablation procedure. Was taking aspirin prior but stopped. Denies ADRs to current regimen. Denies s/sx of bleeding or adherence issues. Takes medication at 7am and 5pm twice daily, but will change to 7am and 7pm starting today. Denies OTC NSAID use (sparingly uses acetaminophen), and has 1 EtOH drink per month (counseled). Pt denies upcoming procedures, but states that in the next year or two I may need a knee replacement . Requesting anticoagulation necklace. Pt has three weeks of medication remaining (has been using samples). Labs: CBC (last 90 days): CBC Collection DT Specimen Test Name Result Units Ref Range 02/03/2024 10:03 BLOOD WBC 5.77 K/cmm 4.50 - 11.00 02/03/2024 10:03 BLOOD RBC 4.38 M/cmm 4.23 - 5.66 02/03/2024 10:03 BLOOD HGB 13.3 g/dL 12.8 - 17 02/03/2024 10:03 BLOOD HCT 38.8 L % 39.2 - 50.4 02/03/2024 10:03 BLOOD MCV 88.6 fl 82 - 99 02/03/2024 10:03 BLOOD MCHC 34.3 g/dL 30.8 - 35.1 02/03/2024 10:03 BLOOD PLT 251 K/cmm 140 - 360 02/03/2024 10:03 BLOOD RDW-CV 13.1 % 12.0 - 16.0 02/03/2024 10:03 BLOOD NEUT % 53.0 % 43.7 - 75.8 02/03/2024 10:03 BLOOD LYMPH % 32.8 % 14.0 - 42.3 02/03/2024 10:03 BLOOD MONO % 10.1 % 5.1 - 13.7 02/03/2024 10:03 BLOOD EOS % 2.8 % 0.4 - 6.8 02/03/2024 10:03 BLOOD BASO % 1.0 % 0.1 - 2.0 SrCr (last 6 weeks): CREATININE-EGFR 02/03/24 10:03 0.88 CRCL IBW: CrCl(est): 64.7 mL/min (Creat: 0.88 02/03/24) CRCL ACT: 71.77 mL/min CRCL ADJ: 64.7 mL/min (02/03/24) LFTs: WNL 02/03/24 Vitals: Weight (BMI): 196 lb [88.90 kg] (01/28/2024 10:06) BMI: 29.0 Height: 69 in [175.3 cm] (01/28/2024 10:06) Active Outpatient Medications (including Supplies): APIXABAN 5MG TAB TAKE ONE TABLET BY MOUTH EVERY 12 HOURS PENDING Non-VA ALFUZOSIN HCL 10MG SA TAB 10MG BY MOUTH ONCE DAILY ACTIVE Non-VA ALLOPURINOL 100MG TAB 100MG BY MOUTH ONCE DAILY ACTIVE Non-VA DORZOLAMIDE HCL 2% OPH SOLN 1 DROP INTO EACH EYE ACTIVE ONCE DAILY Non-VA IRBESARTAN TAB 150 - 12.5 MG BY MOUTH ONCE DAILY ACTIVE Non-VA LATANOPROST 0.005% OPH SOLN 1 DROP INTO EACH EYE ACTIVE TWICE DAILY Non-VA METOPROLOL SUCCINATE 25MG SA TAB 25MG BY MOUTH ONCE ACTIVE DAILY Non-VA ROSUVASTATIN CA 40MG TAB 40MG BY MOUTH ONCE DAILY ACTIVE Interacting Meds with apixaban: none Apixaban: The patient was provided with the following education: --Purpose of Apixaban --Signs and symptoms of stroke and thrombosis and what to do should they occur --Medication Identification --Dosing recommendations -Apixaban may be taken with or without food -Apixaban may be crushed --Storage recommendations -Store medication in a dry area at room temperature --Recommendations for missed doses or overdosage --Importance of medication compliance and avoiding lapses in therapy to minimize the risk of stroke --Monitor for signs/symptoms of bleeding, including: -[place] or brown urine -Red or black tarry stools -Coughing up blood -Vomiting blood or vomit that looks like coffee grounds -Reoccurring nosebleeds -Unusual bleeding from the gums -Bleeding from a cut that does not stop -Headaches, dizziness or weakness --Contact this clinic or provider if patient experiences and serious or intolerable adverse effects --Review risks associated with falling --Which medications to avoid due to drug interactions --Importance of notifying all providers of any medication patient is taking or changes that may occur --What to do if patient wants to discontinue therapy --Contact this clinic or provider if scheduled for a procedure --Contact number for the [facility] provided Assessment: Pt appropriate to continue apixaban therapy. Plan: - Continue Apixaban 5mg twice daily. Will process order for mail - Will enter prosthetics consult for anticoagulation necklace - Will kindly ask [facility] to mail apixaban and afib handout. Time Spent: 15 minutes Next Appt: N/A; Discharge to passive monitoring Next PCP Appt: 01/25/25 EDUCATION Provided with verbal instructions: Yes Provided with written instructions: Yes Barriers to learning: No Readiness to learn: Yes Specific dose directions reviewed: Yes Opportunity for questions/discussion: Yes Reports understanding of instructions: Yes Further learning needs: No PBM PharmD Pharmacotherapy Rem V12: PHARMACIST INTERVENTIONS: ANTICOAGULATION THERAPY DIRECT ORAL ANTICOAGULANT (DOAC) MANAGEMENT Medication monitoring, no dosage change required, continue to monitor and assess Medication reconciliation (changes to active VA and non-VA medication lists to reconcile differences) No changes to medication lists made (medication review completed, no discrepancies identified) Refer or transition back to provider from Clinical Pharmacist Practitioner clinic /morena/ BARI PERSON PHARMD, [facility] CLINICAL PHARMACIST PRACTITIONER Signed: 02/05/2024 08:36 Receipt Acknowledged By: 02/05/2024 08:49 /morena/ PRISCILLA TORRES CPHT Clinical Certified Pharmacy Technician BARI PERSON [place] [facility]
--- OUTSIDE RECORDS SUMMARY | 2024-06-04 10:33 | XMS_ITS | Encounter Summary ---
Author Name [facility] Organization [facility] [place] Address [address] [place] [address] Care Team Providers Care Website Programmer Name Role Phone [facility] Primary Care Provider [facility] Insurance Providers: All historical and [...] PART A Apr 24, 2006 PART A [id number] Elisa FELICIANO PATIENT MEDICARE (WNR) MEDICARE (M) PART B Apr 24, 2006 PART B [id number] Elisa FELICIANO PATIENT Selected Encounter This section includes the information on record at [place] for the Encounter. Date/Time Encounter Type Encounter Description Reason Pro vider Source Jan 02, 2024 12:05 PM Outpatient Encounter PRIMARY CARE/MEDICINE [facility] Encounter Template Text not used by [place] Plan of Treatment: Future Appointments (+ 6 [...] 20 appointments. The data comes from all [place] treatment facilities. Appointment Date/Time Appointment Type Appointme nt Facility Name Jan 28, 2024 10:00 AM AMBULATORY - MEDICINE [facility] Encounter Notes: All associated encounter notes This section contains the clinical notes associated to the Encounter. Date/Time Encounter Note(s) Provider Source Jan 02, 2024 12:06 PM ADDENDUM: LOCAL TITLE: Addendum STANDARD TITLE: ADDENDUM DATE OF NOTE: JAN 02, 2024@12:06:46 ENTRY DATE: JAN 02, 2024@12:06:46 AUTHOR: ALEXA OVIEDO EXP COSIGNER: URGENCY: STATUS: COMPLETED 60 MINS NEW PT APPT [facility] PLEASE REQUEST NON [facility] RECORDS FROM CONTACT LISTED BELOW. RTC TO PACT 1 Audi Rodriguez MD [address] [place] [address] /es/ Alexa Oviedo ADV[employer]ED REVENUE OFFICER Signed: 01/02/2024 12:09 Receipt Acknowledged By: 01/02/2024 12:53 /es/ DESIREE MARTIN LPN LICENSED PRACTICAL NURSE 01/03/2024 15:09 /es/ APARNA ROSE ADVANCE REVENUE OFFICER 01/02/2024 14:45 /es/ SUSAN ANTHONY LPN LPN for SILVIA SNYDER 01/03/2024 09:44 /es/ ARNULFO SHARPE Advanced Furniture Duster 01/02/2024 12:47 /es/ CARY LIANG RN REGISTERED NURSE ======== --- Original Document --- 01/02/24 PATIENT LETTER (T): MARIANO FELICIANO [address] [place] [address] [address] [place], [place], [address] Dear , Welcome to patient aligned care team 1 (PACT 1) with FELICIA URBINA. Prior to meeting you at your new patient appointment we are requesting some of your past medical history so that we may provide you with the exceptional care you deserve. Please note that it is very helpful to have these documents at least two days prior to your appointment date as the more information we have the better we will be able to meet your needs: * Last History & Physical * Immunization records * Medication list * Diagnosis list * Most recent labs * Diagnostic screens (Colonoscopy, Abdominal Aortic Aneurysm screen, Mammograms, PAPS, etc.) You may either drop the requested records off in person to [address] [place] [address] or you may have them faxed to: [phone] ATTN: PACT 1 *Also please complete the enclosed new patient packet and drop it off at our [place] location: [address] [place] [address]* If you have any questions please do not hesitate to contact the Department of [facility]s Affairs call center at [phone]. We look forward to providing your health care! 01/02/2024 ADDENDUM STATUS: COMPLETED Medical records requested /morena/ ARNULFO SHARPE Advanced Furniture Duster Signed: 01/02/2024 13:33 ALEXA OVIEDO JORDAN Jan 02, 2024 12:05 PM LETTERS: LOCAL TITLE: PATIENT LETTER (T) STANDARD TITLE: LETTERS DATE OF NOTE: JAN 02, 2024@12:05 ENTRY DATE: JAN 02, 2024@12:05:55 AUTHOR: ALEXA OVIEDO EXP COSIGNER: URGENCY: STATUS: COMPLETED PATIENT LETTER (T) Has [facility]ENDA DEPARTMENT OF [facility] Toll Free Number Primary Care Telephone Assistance can be reached at extension [phone] [facility] scheduling can be reached at extension [phone] [facility] scheduling can be reached at ext [phone] MARIANO FELICIANO [address] [place] [address] [address] [place], [place], [address] [place], Welcome to patient aligned care team 1 (PACT 1) with FELICIA URBINA. Prior to meeting you at your new patient appointment we are requesting some of your past medical history so that we may provide you with the exceptional care you deserve. Please note that it is very helpful to have these documents at least two days prior to your appointment date as the more information we have the better we will be able to meet your needs: * Last History & Physical * Immunization records * Medication list * Diagnosis list * Most recent labs * Diagnostic screens (Colonoscopy, Abdominal Aortic Aneurysm screen, Mammograms, PAPS, etc.) You may either drop the requested records off in person to [address] [place] [address] or you may have them faxed to: [phone] ATTN: PACT 1 *Also please complete the enclosed new patient packet and drop it off at our [place] location: [address] [place] [address]* If you have any questions please do not hesitate to contact the Department of 's Affairs call center at [phone]. We look forward to providing your health care! 01/02/2024 ADDENDUM STATUS: COMPLETED 60 MINS NEW PT APPT [facility] PLEASE REQUEST NON VA RECORDS FROM CONTACT LISTED BELOW. RTC TO PACT 1 Audi Rodriguez MD [address] [place] [id number] /morena/ Alexa Oviedo ADV[employer]ED REVENUE OFFICER Signed: 01/02/2024 12:09 Receipt Acknowledged By: 01/02/2024 12:53 /es/ DESIREE MARTIN LPN LICENSED PRACTICAL NURSE * AWAITING SIGNATURE * APARNA ROSE * AWAITING SIGNATURE * SILVIA SNYDER * AWAITING SIGNATURE * ARNULFO SHARPE 01/02/2024 12:47 /es/ CARY LIANG, RN REGISTERED NURSE 01/02/2024 ADDENDUM STATUS: COMPLETED Medical records requested /morena/ ARNULFO SHARPE Advanced Furniture Duster Signed: 01/02/2024 13:33 Sincerely, Your Primary Care Team [facility] [address] [facility] [address] [place] [address] [place] [address] [phone] [facility] [address] [place] [address] [place] [address] [phone] [facility] [address] [facility],[address] [place] [address] [place] [address] [phone] ALEXA OVIEDO JORDAN
--- OUTSIDE RECORDS SUMMARY | 2024-06-04 10:33 | XMS_ITS | Encounter Summary ---
Author Name [facility] of [facility] ([place] Organization [facility] of [facility] [place] Address [address] [place] [id number] Care Team Providers Care Residential Interior Designer Name Role Phone CORA WELLS Primary Care [...] PART A Apr 24, 2006 PART A [id number] Elisa FELICIANO PATIENT MEDICARE (WNR) MEDICARE (M) PART B Apr 24, 2006 PART B [id number] Elisa FELICIANO PATIENT Selected Encounter This section includes the information on record at [place] for the Encounter. Date/Time Encounter Type Encounter Description Reason Provider Source Jan 28, 2024 10:00 AM OFFICE O/P EST MOD 30 MIN PRIMARY CARE/MEDICINE ICD-10-CM I48.20 Chronic atrial fibrillation, unspecified CORA WELLS Encounter Template Text not used by [place] Assessments - Encounter Diagnoses This section includes the primary and secondary diagnoses documented for the Encounter. Date/Time Primary/Secondary Diagnosis Diagnosis Name Provider Source Jan 28, 2024 10:47 AM PRIMARY Chronic atrial fibrillation, unspecified CORA WELLS Jan 28, 2024 10:47 AM SECONDARY Essential (primary) hypertension CORA WELLS Jan 28, 2024 10:47 AM SECONDARY Idiopathic gout, unspecified site CORA WELLS [facility] Lab Results: +/- 30 days of the encounter This section includes the Chemistry and Hematology Lab Results on record with [place] for the patient. Radiology Reports and Pathology Reports are provided separately, in subsequent sections. Lab Results This section contains the Chemistry/Hematology Results that were resulted 30 days before or 30 daysafter the date of the Encounter. Date/Time Source Result Type Result - Unit Interpretation Reference Range Comment Feb 03, 2024 10:03 AM [facility] BASIC METABOLIC PANEL (fasting) Specime n Type: SERUM No comment entered. Ordering Provider: CORA WELLS Report Released Date/Time: Feb 03, 2024 09:44 AM Reporting Lab: [facility] [employer] [address] Performing Lab: [address] [address] UREA NITROGEN 18 mg/dL 7-25 GLUCOSE 103 mg/dL H 65-100 SODIUM 138 mmol/L 135-145 POTASSIUM 4.0 mmol/L 3.5-5.0 CHLORIDE 106 mmol/L 100-110 CO2 24 meq/L 20-30 CREATININE, Serum 0.88 mg/dL 0.50-1.40 eGFR(CKD-EPI 2020) 85 mL/min >60 Feb 03, 2024 10:03 AM [facility] LIPID PANEL FASTING Specimen Type: SERUM No comment entered. Ordering Provider: CORA WELLS Report Released Date/Time: Feb 03, 2024 09:44 AM Reporting Lab: [facility] [id number] [address] Performing Lab: [address] [address] CHOLESTEROL 144 mg/dL TRIGLYCERIDE 98 mg/dL 0-150 LDL calculated 87 mg/dL 0-129 CHOL/HDL 3.9 HDL CHOLESTEROL 37 mg/dL L 40-60 Feb 03, 2024 10:03 AM [facility] LIVER FUNCTION Specimen Type: SERUM No comment entered. Ordering Provider: CORA WELLS Report Released Date/Time: Feb 03, 2024 09:44 AM Reporting Lab: [facility] [id number] [address] Performing Lab: [facility] [address] [facility] [address] PROTEIN,TOTAL 6.8 g/dL 6.0-8.3 ALBUMIN 4.0 g/dL 3.5-5.0 ALKALINE PHOSPHATASE 95 U/L 40-150 AST 13 U/L 5-34 ALT 15 U/L BILIRUBIN, TOTAL 0.8 mg/dL 0.2-1.2 Feb 03, 2024 10:03 AM [facility] CBC AND DIFF (AUTO) Specimen Type: BLOOD No comment entered. Ordering Provider: CORA WELLS Report Released Date/Time: Feb 03, 2024 09:44 AM Reporting Lab: [address] [address] Performing Lab: [address] [address] WBC 5.77 10*3/uL 4.50-11.00 RBC 4.38 10*6/uL [...] 10*3/uL 0.00-0.00 Feb 03, 2024 10:03 AM [facility] HEMOGLOBIN A1C PANEL Specimen Type: BLOOD Comment: [...] Feb 03, 2024 09:44 AM Reporting [facility]: [facility] [address] [address] Performing Lab: [facility] [address] [address] HEMOGLOBIN A1C 5.7 H 4.0-5.6 Feb 03, 2024 10:03 AM [facility] TSH Specimen Type: SERUM No comment entered. Ordering Provider: CORA WELLS Report Released Date/Time: Feb 03, 2024 09:44 AM Reporting [facility] [address] [address] Performing [facility]: [facility] [address] TSH 1.15 u[IU]/mL 0.35-5.00 Feb 03, 2024 10:03 AM [facility] CALCIUM Specimen Type: SERUM No comment entered. Ordering Provider: CORA WELLS Report Released Date/Time: Feb 03, 2024 09:44 AM Reporting [facility] [address] Per[facility]: [facility] [address] CALCIUM 9.7 mg/dL 8.5-10.2 Feb 03, 2024 10:03 AM [facility] URIC ACID Specimen Type: SERUM No comment entered. Ordering Provider: CORA WELLS Report Released Date/Time: Feb 03, 2024 09:44 AM Reporting [facility] [address] [address] Performing Lab: [address] [address] URIC ACID 5.0 mg/dL 3.5-7.2 Feb 03, 2024 10:03 AM [facility] RETICULOCYTES Specimen Type: BLOOD No comment entered. Ordering Provider: CORA WELLS Report Released Date/Time: Feb 03, 2024 09:44 AM Reporting Lab: [address] [address] Performing Lab: [address] [address] RETIC % 1.2 0.6-2.0 RETIC, ABS 53.9 10*3/uL 30.0-90.0 RET-HE % 34.3 27.9-42.0 Feb 03, 2024 10:03 AM [facility] FERRITIN Specimen Type: SERUM No comment entered. Ordering Provider: CORA WELLS Report Released Date/Time: Feb 03, 2024 09:44 AM Reporting Lab: [address] [address] Performing Lab: [address] [address] FERRITIN 259 ng/mL 20-300 Feb 03, 2024 10:03 AM [facility] MICROALBUMIN CREATININE RATIO PANEL Spe cimen Type: URINE No comment entered. Ordering Provider: CORA WELLS Report Released Date/Time: Feb 03, 2024 09:44 AM Reporting Lab: [address] [address] Performing Lab: [address] [address] MICROALBUMIN/CR EATININE RATIO canc mg/g 0-29.9 MICROALBUMIN,QU ANTITATIVE < 0.5 mg/dL RR UNAVAIL CREATININE URINE 78.18 mg/dL Feb 03, 2024 10:03 AM [facility] URINALYSIS Specimen Type: URINE Comment: If Glucose = >500 and Ketones are positive, please alert the Physician. Ordering Provider: CORA WELLS Report Released Date/Time: Feb 03, 2024 09:44 AM Reporting Lab: [address] [address] Performing Lab: [address] [address] UA COLOR Light-Yellow Yellow UA APPEARANCE Clear Clear UA GLUCOSE Normal mg/dL Negative UA KETONES NEGATIVE mg/dL Negative UA BLOOD NEGATIVE mg/dL Negative UA PROTEIN NEGATIVE mg/dL Negative UA NITRITE NEGATIVE mg/dL Negative UA BILIRUBIN NEGATIVE mg/dL Negative UA SPECIFIC GRAVITY 1.018 1.016-1.02 2 UA pH 6.0 5.0-9.0 UA UROBILINOGEN Normal mg/dL <2.0 UA LEUKOCYTE NEGATIVE Negative Feb 03, 2024 10:03 AM [facility] VITAMIN B12 Specimen Type: SERUM No comment entered. Ordering Provider: CORA WELLS Report Released Date/Time: Feb 03, 2024 09:44 AM Reporting Lab: [address] [address] Performing Lab: [address] [address] VITAMIN B12 600 pg/mL 200-900 Feb 03, 2024 10:03 AM [facility] VITAMIN D (25-OH) Specimen Type: SERUM No comment entered. Ordering Provider: CORA WELLS Report Released Date/Time: Feb 03, 2024 09:44 AM Reporting Lab: [address] [address] Performing Lab: [address] [address] VITAMIN D (25-OH) 73 ng/mL H 20-50 Vital Signs: All taken on the encounter date This section contains inpatient and outpatient Vital Signs collected on the date of the Encounter. Date/Time Temperature Pulse Blood Pressure Respiratory Rate SP02 Pain Height Weight Body Mass Index Source Jan 28, 2024 10:06 AM 98.4 75 123/78 18 95 69 196 29 [facility] Social History: Smoking Status (Most current) and Tobacco Use (All prior to encounter date) This section includes the most current, and the historical, smoking and tobacco- related health factors from the [place] facility where the Encounter took place. Current Smoking Status This section includes the most current smoking, or tobacco-related health factor, from the [place] facility where the Encounter took place. Date/Time Current Smoking Status Comment Facil ity Jan 28, 2024 10:00 AM VA-TOBACCO FORMER USER [facility] Tobacco Use History This section includes a history of the smoking, or tobacco-related health factors, that were collected on or before the date of the Encounter. The data comes from the [place] facility where the Encounter took place. Date/Time Smoking Status/Tobacco Use Comment F acility Jan 28, 2024 10:00 AM VA-TOBACCO QUIT 15 YRS OR MORE [facility] Encounter Notes: All associated encounter notes This section contains the clinical notes associated to the Encounter. Date/Time Encounter Note(s) Provider Source Jan 28, 2024 10:07 AM PREVENTIVE MEDICIN E NURSING NOTE: LOCAL TITLE: CLINICAL REMINDERS/NURSING STANDARD TITLE: PREVENTIVE MEDICINE NURSING NOTE DATE OF NOTE: JAN 28, 2024@10:07 ENTRY DATE: JAN 28, 2024@10:07:23 AUTHOR: SILVIA SNYDER EXP COSIGNER: URGENCY: STATUS: COMPLETED Advance Directive Screen MH AD: Patient has an up-to-date Advance Directive at an outside, non-va facility and was asked to forward a copy to his/her clinician. Pneumococcal Conjugate Vaccine (PCV15/PCV20): Refuses PCV vaccine Immunization: PNEUMOCOCCAL CONJUGATE, UNSPECIFIED FORMULATION Refusal Reason: PATIENT DECISION Patient refuses all immunization(s) in the PneumoPCV group Date Documented: 01/28/24 10:07 Influenza Immunization: The patient has received the seasonal influenza vaccine for the current season at another location. Documented: INFLUENZA, UNSPECIFIED FORMULATION Historical Date Administered: Apr 2023 Exact date unknown Outside Location: Outside Healthcare Provider Information Source: FROM PATIENT'S RECALL COVID-19 Immunization: Vaccine given previously - no written/electronic documentation available The patient was instructed to bring a copy of their COVID-19 vaccine information to their next appointment so that this can be accurately recorded in their [place] medical record. Tdap Immunization: The patient may have been vaccinated in the past but written documentation of vaccination is not available today. Patient instructed to obtain a written record of the prior vaccine and bring it to the next appointment. Herpes Zoster (Shingles) Vaccine: The patient declines to receive the recommended dose of zoster (shingles) vaccine. Immunization: ZOSTER RECOMBINANT Refusal Reason: PATIENT DECISION Patient refuses all immunization(s) in the ZOSTER group Comment: Will think about Date Documented: 01/28/24 10:08 RHS Screen: RHS Screen Environmental Check Upon inquiry, the individual reports that the environment is safe to proceed. Informed Consent to Screen and Document The individual consents to proceed with screening. The individual consents to documentation of responses. PRIMARY SCREEN: In the past 12 months, how often did a current or former intimate partner (e.g., boyfriend, girlfriend, , , sexual partner): 1. Scream or curse at you Never 2. Insult or talk down to you Never 3. Threaten you with harm Never 4. Physically hurt you Never 5. Force or pressure you to have sexual contact against your will, or when you were unable to say no Never ?? The HITS tool (items 1-4 above) is [place] copyright protected by Mehdi Frazier MD, and the user has full rights to use it throughout the [place] system. PRIMARY SCREEN RESULT: The Primary Screen is NEGATIVE. The individual answered never to all forms of IPV above (i.e., answered never to all 5 items) The individual accepts education and/or resources: No EDUCATION: Other: Safety Plan completed: Albina /morena/ SILVIA SNYDER LPN LICENSED PRACTICAL NURSE Signed: 01/28/2024 11:31 SILVIA SNYDER [facility] Jan 28, 2024 10:03 AM PHYSICIAN ASSISTAN T NOTE: LOCAL TITLE: PA NOTE STANDARD TITLE: PHYSICIAN MANAGER SALES TRAINING NOTE DATE OF NOTE: JAN 28, 2024@10:03 ENTRY DATE: JAN 28, 2024@10:03:52 AUTHOR: CORA WELLS EXP COSIGNER: URGENCY: STATUS: COMPLETED S - 83 y/o M Allergy: NKAM MEDS: see below CC: new pt initial eval HPI: see Problem List PMH: neg CAD/AMI +HTN + A FIB (and has Pacemaker) neg PVD or PAD neg COPD neg Asthma neg Hepatic Disorders +Renal Lithiasis neg CVA/TIA neg Seizures neg Chronic Coagulopathy neg PUD, UGI Bleed neg Anemia, Excess Bleeding, Easy Bruising neg Blood Transfusions neg DM neg Thyroid Disorders +BPH any Signif Infectious Diseases? like TB/HIV/HEP B or C +OA, L Knee never CA of any kind PSH: see Problem list ROS: denies fever, night sweats denies unintended changes WT/appetite denies new fatigue denies new chest pain denies new dyspnea/SOB denies new mental staus changes (or TIA Sx) denies ABD pain denies N/V/D denies chronic or bloody diarrhea denies (chronic) constipation denies LUTS (except bph) denies melena, hematochezia denies new skin lesions or rashes FH: non-contributory Mil Hx: [employer], [place] 1961 - 1963 MOS - [employer] - never WIA - never TBI - no [place]: retired; worked at [employer] SH: O - coop A&Ox3 NAD W-N/H/D VS: Stable HEENT: Eyes - PERRL, anicteric OU Ears - EAC clear AU TM clear AU Oropharynx - no petechiae, uvula midline NECK: no adeno no bruits PUL: Resp full, reg, unlabored; CTA B/L COR: RRR, no M ABD: no distention no bruits no tenderness no mass/megaly RECTAL: defer; sees URO EXT: no LLE or calf tenderness INTEG: NL texture/turgor NAILS: no clubbing no spooning LABS: none yet A/P - 1) Hypertension - BP 124/78 - on Irbesartan (and a Diuretic) 2) C/V Stable - never AL 3) A FIB (new dx 2022) and then had Bouts Bradycardia - has a Pacemaker - HR 72 - take Apixaban - takes Metoprol SUCC 4) Neuro Stable - never CVA/TIA 5) Hypercholesterolemia - on Crestor 6) Normoglycemic 7) Coagulopathy - no 8) Fall Risk: No 9) Urinary Incontinence: No 10) h/o Gout - on Allopurinol Daily MEDS: Reconciled - has list RTC FEB 15 - sooner prn Fast Labs Few Days Before Next Visit Suicide Screen: C-SSRS Screening [place]-Suicide Severity Rating Scale (C-SSRS Screener) 1. Over the past month, have you wished you were or wished you could go to sleep and not wake up? No 2. Over the past month, have you had any actual thoughts of killing yourself? No 3. Over the past month, have you been thinking about how you might do this? Response not required due to responses to other questions. 4. Over the past month, have you had these thoughts and had some intention of acting on them? Response not required due to responses to other questions. 5. Over the past month, have you started to work out or worked out the details of how to kill yourself? Response not required due to responses to other questions. 6. If yes, at any time in the past month did you intend to carry out this plan? Response not required due to responses to other questions. 7. In your lifetime, have you ever done anything, started to do anything, or prepared to do anything to end your life (for example, collected pills, obtained a gun, gave away valuables, went to the roof but didn't jump)? No 8. If YES, was this within the past 3 months? Response not required due to responses to other questions. Toxic Exposure Screening: The [place]/caregiver was asked if they believe the [place] experienced any toxic exposure(s), such as Airborne Hazards and Open Burn Pit, [place] War related exposures, Agent Seth, Radiation, contaminated water at [place] or other such exposures, while serving in the [employer]. [place] has no concerns about toxic exposure(s) while serving in the [employer]. The Verdigre/caregiver was informed that we will continue to ask this screening question every 5 years. They can contact their provider/healthcare team if they have concerns about exposures and would like to be screened sooner. Printed information was offered and provided if desired. Homelessness/Food Insecurity Screen: In the past 2 months, have you been living in stable housing that you own, rent, or stay in as part of a household? Yes - Living in stable housing. Are you worried or concerned that in the next 2 months you may NOT have stable housing that you own, rent, or stay in as part of a household? No - Not worried about housing near future The reports the following: Within the past 12 months, you worried whether your food would run out before you got money to buy more. Never true Within the past 12 months, the food you bought just didn't last and you didn't have money to get more. Never true Depression Screening: Perform PHQ-2 A PHQ-2 screen was performed. The score was 0 which is a negative screen for depression. Over the past two weeks, how often have you been bothered by the following problems? 1. Little interest or pleasure in doing things Not at all 2. Feeling down, depressed, or hopeless Not at all Falls & Incontinence Screen: Falls Screen: During the past 12 months, did the patient report any falls? 4. No falls within the past year. Incontinence Screen: During the past 12 months, has the patient has any characteristics of incontinence (ability, voiding, leakage, etc.)? No incontinence. MST Screening: Patient denies experiencing sexual trauma (MST). Preferred Language: What is your, or your caregiver's preferred language for healthcare? Preferred Language: Nigerien PTSD Screening: PC-PTSD-5 A PTSD screening test (PC-PTSD-5) was negative (score=0). IN THE PAST MONTH, have you ever had any experience that was so frightening, horrible or traumatic. For example: A serious accident or fire a physical or sexual assault or abuse An earthquake or flood A war Seeing someone be killed or seriously injured Having a loved one through homicide or suicide 1. Have you ever experienced this kind of event? NO 2. Had nightmares about the event(s) or thought about the event(s) when you did not want to? Response not required due to responses to other questions. 3. Tried hard not to think about the event(s) or went out of your way to avoid situations that reminded you of the event(s)? Response not required due to responses to other questions. 4. Been constantly on guard, watchful, or easily startled? Response not required due to responses to other questions. 5. Mason numb or detached from people, activities, or your surroundings? Response not required due to responses to other questions. 6. Mason guilty or unable to stop blaming yourself or others for the event(s) or any problems the event(s) may have caused? Response not required due to responses to other questions. Tobacco Use Screening: The patient is a former tobacco user. The patient quit fifteen or more years ago. Alcohol Use Screen (AUDIT-C): Alcohol Screen: SCREEN FOR ALCOHOL (AUDIT-C) An alcohol screening test (AUDIT-C) was negative (score=0). 1. How often did you have a drink containing alcohol in the past year? Consider a drink to be a 12 ounce can or bottle of regular beer, 8 ounces of malt liquor, a 5 ounce glass of table wine, or a 1.5 ounce shot of liquor (like scotch, gin, or vodka). Never 2. How many drinks containing alcohol did you have on a typical day when you were drinking in the past year? Response not required due to responses to other questions. 3. How often did you have six or more drinks on one occasion in the past year? Response not required due to responses to other questions. Sexual Orientation: The patient thinks of their sexual orientation as: Straight or Heterosexual Medication Reconciliation: Outpatient: Has the patient been taking medications as documented in the EMLR? YES: The patient has been taking medications as documented in the EMLR. Essential Medication List for Review used to complete this medication reconciliation. INCLUDED IN THIS LIST: Alphabetical list of active outpatient prescriptions dispensed from this [facility] (local) and dispensed from another VA or [facility] facility (remote) as well as inpatient orders (local, pending and active), local clinic medications, locally documented non-VA medications, and local prescriptions that have or been discontinued in the past 90 days. - All changes in medications, including all non-VA/Her[facility]/OTC medications were entered into CPRS. Changes: nt - If there were any medications the patient should no longer take, they were discontinued. - The patient/caregiver was instructed to update this list, discard old lists, and take this list to the next appointment, whether with a VA or non-VA provider. /morena/ CORA WELLS PA-C STAFF PHYSICIAN MANAGER SALES TRAINING Signed: 01/28/2024 10:49 CORA WELLS
--- OUTSIDE RECORDS SUMMARY | 2024-06-04 10:33 | XMS_ITS | Continuity of Care Document ---
Author Name [facility] Organization [facility] Care Team Providers Care Telephone Service Adviser Name Role Phone [facility] Unavailable Unavailable Problems Combined list of problems from Department of Defense and Veterans Affairs facilities. It does not include entries that were removed or entered in error. Problem Status Onset Date Problem Type Date of Resolution Comments Source Bereavement Active Condition Jan 28, 2024 Entered By: CORA WELLS Comment: Passed Approx 2017 [place] Chronic atrial fibrillation Active Condition Jan 28, 2024 Entered By: CORA WELLS Comment: Pacemaker Placed 2022; Then Had to Do Ablations x 3 in 2023; Is OK NowAu 2023 Entered By: CORA WELLS Comment: Cardio Dr Campos [phone] 2023 Entered By: CORA WELLS Comment: Pacemaker Placed Because of Intermit Bouts Bradycardia (set at 60 BPM) [place] History of calculus of kidney Active Condition Jan 28, 2024 Entered By: CORA WELLS Comment: and BPHg 2023 Entered By: CORA WELLS Comment: Private URO DR Giles [phone] [place] History of cholecystectomy Active Condition Jan 28, 2024 Entered By: CORA WELLS Comment: Cholecystectomy 2014 [place] [facility]olemia [facility]pertension Active Condition [place] Long-term current use of anticoagulant Active Condition [facility] [place] [facility] Osteoarthritis of left knee joint Active Condition Jan 28, 2024 Entered By: CORA WELLS Comment: Rase-jx-Onrm; Does Cortisone Inj's as of 2023; No Plan for TKR (yet)Jan 28, 2024 Entered By: CORA WELLS Comment: Private Ortho Dr Jacob [phone] [place] Primary gout Active Condition Jan 28, 2024 Entered By: CORA WELLS Comment: Allopurinol Prophylaxis's [place] Screening for malignant neoplasm of colon done Active Condition Jan 28, 2024 Entered By: CORA WELLS Comment: Hx Colonoscopies; Never CRC or Polyposis;Jan 28, 2024 Entered By: CORA WELLS Comment: At 83 Years of Age; Only Repeat Colonoscopies prn any Adverse GI Sx [place] Under care of doctor Active Condition Jan 28, 2024 Entered By: CORA WELLS Comment: PCP Dr Rodriguez [phone] [place] Diagnosis: ICD-10-CM Z79.01 half-way (current) use of anticoagulants Active Diagnosis [place] [facility] [place] [facility] Diagnosis: ICD-10-CM I48.20 Chronic atrial fibrillation, unspecified Active Diagnosis [place] Medications Combined list of outpatient medications from Department of Defense and Veterans Affairs facilities.Medications provided include 1) outpatient medications from the last 15 months, and 2) patient-reported medications. Medication Details Route Status Patient Instructions Prescription Expires Prescription Number Last Dispense Date Ordering Provider Order Date Order Qty Source ALFUZOSIN HCL 10MG TAB,SA TAKE ONE TABLET BY MOUTH ONCE DAILY ORAL ACTIVE PATRICIA WELLS 2023 [facility] IELD ALLOPURINOL 100MG TAB TAKE ONE TABLET BY MOUTH ONCE DAILY ORAL ACTIVE PATRICIA WELLS 2023 [facility] IELD APIXABAN 5MG TAB TAKE ONE TABLET BY MOUTH EVERY 12 HOURS FOR PREVENTI ON OF BLOOD CLOTS ORAL ACTIVE 02/04/2025 [id number] PATRICIA WELLS 2023 [facility] DORZOLAMIDE HCL 2% SOLN,OPH INSTILL 1 DROP INTO EACH EYE ONCE DAILY OPHTHA LMIC ACTIVE PATRICIA WELLS [place] I[place] IRBESARTAN TAB TAKE 150 - 12.5 MG BY MOUTH ONCE DAILY ORAL ACTIVE PATRICIA WELLS [place] IELD LATANOPROST 0.005% SOLN,OPH INSTILL 1 DROP INTO EACH EYE TWICE DAILY OPHTHA LMIC ACTIVE PATRICIA WELLS 2023 [facility] IELD METOPROLOL SUCCINATE 25MG TAB,SA TAKE ONE TABLET BY MOUTH ONCE DAILY ORAL ACTIVE PATRICIA WELLS 2023 [facility] IELD ROSUVASTATI N CA 40MG TAB TAKE ONE TABLET BY MOUTH ONCE DAILY ORAL ACTIVE PATRICIA WELLS 2023 [facility] IELD Immunizations Combined list of available immunizations from the Department of Defense and Veterans Affairs facilities. Immunization Series Date Given Administered By Site Reaction Lot Number CVX Code Drug Vegetable Thinner Status Comments Source INFLUENZA, UNSPECIFIED FORMULATION 2022 88 complet ed [facility] [place] [facility] Results Combined list of recent chemistry, hematology and other laboratory results from Department of Defense and Veterans Affairs, ranging from 15 months to all on record, depending upon the facility. Order Name Results Value Reference Range Date Interpretation Specimen Comments Source BASIC METABOLIC PANEL (fasting) UREA NITROGEN [MASS/VOLUM E] IN SERUM OR PLASMA 18 mg/dL 7 - 25 02/02 Specimen Type: SERUM No comment entered. Ordering Provider: CORA WELLS Report Released Date/Time: Feb 03, 2024 09:44 AM Reporting Lab: [facility] [address] [facility] [address] Performing Lab: [facility] [employer] [address] [employer]E [employer] BASIC METABOLIC PANEL (fasting) GLUCOSE [MASS/VOLUM E] IN SERUM OR PLASMA 103 mg/dL 65 - 100 02/02 H Specimen Type: SERUM No comment entered. Ordering Provider: CORA WELLS Report Released Date/Time: Feb 03, 2024 09:44 AM Reporting Lab: [facility] [employer] [facility] LLCUSECAYU[facility] [address] [address] Performing Lab: [facility]nersUSECAY[facility] [address] [facility] [address] [employer] BASIC METABOLIC PANEL (fasting) SODIUM [MOLES/VOLU ME] IN SERUM OR PLASMA 138 mmol/L 135 - 145 02/02 Specimen Type: SERUM No comment entered. Ordering Provider: CORA WELLS Report Released Date/Time: Feb 03, 2024 09:44 AM Reporting Lab: [facility]USECAY[facility] [address] [facility] [address] Performing Lab: [facility] [address] [facility] [address] [employer] BASIC METABOLIC PANEL (fasting) POTASSIUM [MOLES/VOLU ME] IN SERUM OR PLASMA 4.0 mmol/L 3.5 - 5.0 02/02 Specimen Type: SERUM No comment entered. Ordering Provider: CORA WELLS Report Released Date/Time: Feb 03, 2024 09:44 AM Reporting Lab: [facility]PITALRST. VINCENT'S CHILTONTRN [facility] HOSPITALUSETS [facility] [address] [facility] [address] Performing Lab: [facility]OSPITALRRED BAY HOSPITALN [facility] HOSPITALUSECAYU[facility] [address] [facility] [address] [place] [employer] [place] BASIC METABOLIC PANEL (fasting) CHLORIDE [MOLES/VOLU ME] IN SERUM OR PLASMA 106 mmol/L 100 - 110 02/02 Specimen Type: SERUM No comment entered. Ordering Provider: CORA WELLS Report Released Date/Time: Feb 03, 2024 09:44 AM Reporting Lab: [facility]OSPITALRRED BAY HOSPITALN [facility] [address] [address] Performing Lab: [facility] HOSPITALUSE[address] [address] [place] [employer] [place] BASIC METABOLIC PANEL (fasting) CARBON DIOXIDE, TOTAL [MOLES/VOLU ME] IN SERUM OR PLASMA 24 meq/L 20 - 30 02/02 Specimen Type: SERUM No comment entered. Ordering Provider: CORA WELLS Report Released Date/Time: Feb 03, 2024 09:44 AM Reporting Lab: [facility]OSPITALRRED BAY HOSPITALN [facility] [address] [address] Performing Lab: [facility]OSPITALRRED BAY HOSPITALN [facility] HOSPITALUSE[address] [address] [place] [employer] [place] BASIC METABOLIC PANEL (fasting) CREATININE [MASS/VOLUM E] IN SERUM OR PLASMA 0.88 mg/dL 0.50 - 1.40 02/02 Specimen Type: SERUM No comment entered. Ordering Provider: CORA WELLS Report Released Date/Time: Feb 03, 2024 09:44 AM Reporting Lab: [facility]OSPITALRRED BAY HOSPITALN [facility] [address] [address] Performing Lab: [facility] [address] [address] [place] [employer] [place] BASIC METABOLIC PANEL (fasting) GLOMERULAR FILTRATION RATE/1.73 SQ M.PREDICTED [VOLUME RATE/AREA] IN SERUM, PLASMA OR BLOOD BY CREATININE- BASED FORMULA (CKD-EPI 2020) 85 mL/min 60 02/02 Specimen Type: SERUM No comment entered. Ordering Provider: CORA WELLS Report Released Date/Time: Feb 03, 2024 09:44 AM Reporting Lab: [facility]OSPITALRRED BAY HOSPITALN [address] [address] Performing Lab: [facility] [address] [address] [place] LIPID PANEL FASTING CHOLESTEROL [MASS/VOLUM E] IN SERUM OR PLASMA 144 mg/dL 02/02 Specimen Type: SERUM No comment entered. Ordering Provider: CORA WELLS Report Released Date/Time: Feb 03, 2024 09:44 AM Reporting Lab: [facility]OSPITALRRED BAY HOSPITALN [address] [address] Performing Lab: [address] [address] [place] LIPID PANEL FASTING TRIGLYCERID E [MASS/VOLUM E] IN SERUM OR PLASMA 98 mg/dL 0 - 150 02/02 Specimen Type: SERUM No comment entered. Ordering Provider: CORA WELLS Report Released Date/Time: Feb 03, 2024 09:44 AM Reporting Lab: [facility] [address] [address] Performing Lab: [facility] [address] [address] [place] LIPID PANEL FASTING CHOLESTEROL IN LDL [MASS/VOLUM E] IN SERUM OR PLASMA BY CALCULATION 87 mg/dL 0 - 129 02/02 Specimen Type: SERUM No comment entered. Ordering Provider: CORA WELLS Report Released Date/Time: Feb 03, 2024 09:44 AM Reporting Lab: [facility] [address] [address] Performing Lab: [facility] [address] [address] [place] LIPID PANEL FASTING CHOLESTEROL .TOTAL/CHOL ESTEROL IN HDL [MASS RATIO] IN SERUM OR PLASMA 3.9 02/02 Specimen Type: SERUM No comment entered. Ordering Provider: CORA WELLS Report Released Date/Time: Feb 03, 2024 09:44 AM Reporting Lab: [facility] [address] [address] Performing Lab: [facility]N [facility] HOSPITALUSECAYUGA MEDICAL [facility] [address] [facility] [address] [place] LIPID PANEL FASTING CHOLESTEROL IN HDL [MASS/VOLUM E] IN SERUM OR PLASMA 37 mg/dL 40 - 60 02/02 L Specimen Type: SERUM No comment entered. Ordering Provider: CORA WELLS Report Released Date/Time: Feb 03, 2024 09:44 AM Reporting Lab: [facility]N [facility]OSPITALUSECAYUGA [facility] [address] [facility] [address] Performing Lab: [facility]N [facility] HOSPITALUSECAYUGA [facility] [address] [facility] [address] [place] LIVER FUNCTION PROTEIN [MASS/VOLUM E] IN SERUM OR PLASMA 6.8 g/dL 6.0 - 8.3 02/02 Specimen Type: SERUM No comment entered. Ordering Provider: CORA WELLS Report Released Date/Time: Feb 03, 2024 09:44 AM Reporting Lab: [facility] [address] [facility] [address] Performing Lab: [facility]N [facility]OSPITALUSECAYUGA MEDICAL [facility] [address] [facility] [address] [place] LIVER FUNCTION ALBUMIN [MASS/VOLUM E] IN SERUM OR PLASMA 4.0 g/dL 3.5 - 5.0 02/02 Specimen Type: SERUM No comment entered. Ordering Provider: CORA WELLS Report Released Date/Time: Feb 03, 2024 09:44 AM Reporting Lab: [facility] [address] [facility] [address] Performing Lab: [facility]N [facility]OSPITALUSECAYUGA MEDICAL [facility] [address] [address] [place] LIVER FUNCTION ALKALINE PHOSPHATASE [ENZYMATIC ACTIVITY/VO LUME] IN SERUM OR PLASMA 95 U/L 40 - 150 02/02 Specimen Type: SERUM No comment entered. Ordering Provider: CORA WELLS Report Released Date/Time: Feb 03, 2024 09:44 AM Reporting Lab: [facility] [address] [address] Performing Lab: [facility] [address] [address] [place] LIVER FUNCTION ASPARTATE AMINOTRANSF ERASE [ENZYMATIC ACTIVITY/VO LUME] IN SERUM OR PLASMA 13 U/L 5 - 34 02/02 Specimen Type: SERUM No comment entered. Ordering Provider: CORA WELLS Report Released Date/Time: Feb 03, 2024 09:44 AM Reporting Lab: [facility] [place] [facility] [address] [facility] [address] Performing Lab: [facility] [place] [facility] [address] [facility] [address] [place] LIVER FUNCTION ALANINE AMINOTRANSF ERASE [ENZYMATIC ACTIVITY/VO LUME] IN SERUM OR PLASMA 15 U/L 02/02 Specimen Type: SERUM No comment entered. Ordering Provider: CORA WELLS Report Released Date/Time: Feb 03, 2024 09:44 AM Reporting Lab: ID CN[facility]L WSTRN [address] [address] Performing Lab: ID [facility]OSPITALUSE[address] [address] [place] LIVER FUNCTION BILIRUBIN.T OTAL [MASS/VOLUM E] IN SERUM OR PLASMA 0.8 mg/dL 0.2 - 1.2 02/02 Specimen Type: SERUM No comment entered. Ordering Provider: CORA WELLS Report Released Date/Time: Feb 03, 2024 09:44 AM Reporting Lab: [place] [facility] [place] [address] [address] Performing Lab: [place] [facility] [place] [place] [address] [address] [place] CBC AND DIFF (AUTO) LEUKOCYTES [#/VOLUME] IN BLOOD BY AUTOMATED COUNT 5.77 10*3/u L 4.50 - 11.00 02/02 Specimen Type: BLOOD No comment entered. Ordering Provider: CORA WELLS Report Released Date/Time: Feb 03, 2024 09:44 AM Reporting Lab: [facility] [place] [facility] [address] [facility] [address] Performing Lab: [place] [facility] [place] [address] [address] [place] CBC AND DIFF (AUTO) ERYTHROCYTE S [#/VOLUME] IN BLOOD BY AUTOMATED COUNT 4.38 10*6/u L 4.23 - 5.66 02/02 Specimen Type: BLOOD No comment entered. Ordering Provider: CORA WELLS Report Released Date/Time: Feb 03, 2024 09:44 AM Reporting Lab: [facility] [address] [address] Performing Lab: [facility] [address] [address] [place] CBC AND DIFF (AUTO) HEMOGLOBIN [MASS/VOLUM E] IN BLOOD 13.3 g/dL 12.8 - 17 02/02 Specimen Type: BLOOD No comment entered. Ordering Provider: CORA WELLS Report Released Date/Time: Feb 03, 2024 09:44 AM Reporting Lab: [facility] [address] [address] Performing Lab: [address] [address] [place] CBC AND DIFF (AUTO) HEMATOCRIT [VOLUME FRACTION] OF BLOOD BY AUTOMATED COUNT 38.8 39.2 - 50.4 02/02 L Specimen Type: BLOOD No comment entered. Ordering Provider: CORA WELLS Report Released Date/Time: Feb 03, 2024 09:44 AM Reporting Lab: [facility] [address] [address] Performing Lab: [facility] [address] [address] [place] CBC AND DIFF (AUTO) MCV [ENTITIC VOLUME] BY AUTOMATED COUNT 88.6 fL 82 - 99 02/02 Specimen Type: BLOOD No comment entered. Ordering Provider: CORA WELLS Report Released Date/Time: Feb 03, 2024 09:44 AM Reporting Lab: [facility] [address] [address] Performing Lab: [facility] [address] [address] [place] CBC AND DIFF (AUTO) MCHC [MASS/VOLUM E] BY AUTOMATED COUNT 34.3 g/dL 30.8 - 35.1 02/02 Specimen Type: BLOOD No comment entered. Ordering Provider: CORA WELLS Report Released Date/Time: Feb 03, 2024 09:44 AM Reporting Lab: [facility] [place] [facility] [address] [facility] [address] Performing Lab: [facility]ITALR WSTRN [address] [address] [place] CBC AND DIFF (AUTO) PLATELETS [#/VOLUME] IN BLOOD BY AUTOMATED COUNT 251 10*3/u L 140 - 360 02/02 Specimen Type: BLOOD No comment entered. Ordering Provider: CORA WELLS Report Released Date/Time: Feb 03, 2024 09:44 AM Reporting Lab: [facility]ITALR [place]N [place] [address] [address] Performing Lab: [facility] HOSPITALRST. VINCENT'S CHILTONTRN [address] [address] [place] CBC AND DIFF (AUTO) ERYTHROCYTE DISTRIBUTIO N WIDTH [RATIO] BY AUTOMATED COUNT 13.1 12.0 - 16.0 02/02 Specimen Type: BLOOD No comment entered. Ordering Provider: CORA WELLS Report Released Date/Time: Feb 03, 2024 09:44 AM Reporting Lab: [facility]OSPITALRL [facility]STRN [place] [address] [address] Performing Lab: [facility] HOSPITALRST. VINCENT'S CHILTONTRN [facility] HOSPITALUSETS [address] [address] [place] CBC AND DIFF (AUTO) MONOCYTES [#/VOLUME] IN BLOOD BY AUTOMATED COUNT 0.58 10*3/u L 0.30 - 1.10 02/02 Specimen Type: BLOOD No comment entered. Ordering Provider: CORA WELLS Report Released Date/Time: Feb 03, 2024 09:44 AM Reporting Lab: [facility] HOSPITALRL [facility]N [place] [address] [address] Performing Lab: [facility] HOSPITALRL WSTRN [facility] HOSPITALCHUSETS [address] [address] [place] CBC AND DIFF (AUTO) MCH [ENTITIC MASS] BY AUTOMATED COUNT 30.4 pg 26.2 - 32.6 02/02 Specimen Type: BLOOD No comment entered. Ordering Provider: CORA WELLS Report Released Date/Time: Feb 03, 2024 09:44 AM Reporting Lab: [facility] [place] [facility] [address] [facility] [address] Performing Lab: ID CNTRL WSTRN [facility]CH[facility]AT[facility] HOSPITALCHUSETS [facility] [address] [facility] [address] [place] CBC AND DIFF (AUTO) NEUTROPHILS /100 LEUKOCYTES IN BLOOD BY AUTOMATED COUNT 53.0 43.7 - 75.8 02/02 Specimen Type: BLOOD No comment entered. Ordering Provider: CORA WELLS Report Released Date/Time: Feb 03, 2024 09:44 AM Reporting Lab: [facility] W[facility]N [facility]ITALUSETS [facility] [address] [facility] [address] Performing Lab: ID CNTRL TRN [facility] HOSPITALUSETS [address] [address] [place] CBC AND DIFF (AUTO) LYMPHOCYTES /100 LEUKOCYTES IN BLOOD BY AUTOMATED COUNT 32.8 14.0 - 42.3 02/02 Specimen Type: BLOOD No comment entered. Ordering Provider: CORA WELLS Report Released Date/Time: Feb 03, 2024 09:44 AM Reporting Lab: [facility] HOSPITALRL TRN [facility] HOSPITALUSETS [facility] [address] [facility] [address] Performing Lab: ID CNTRL WSTRN [facility] HOSPITALCHUSETS [address] [address] [place] CBC AND DIFF (AUTO) MONOCYTES/1 00 LEUKOCYTES IN BLOOD BY AUTOMATED COUNT 10.1 5.1 - 13.7 02/02 Specimen Type: BLOOD No comment entered. Ordering Provider: CORA WELLS Report Released Date/Time: Feb 03, 2024 09:44 AM Reporting Lab: [facility]ITALUSETS [address] [address] Performing Lab: [facility]OSPITALRL WSTRN [facility] HOSPITALUSETS [address] [address] [place] CBC AND DIFF (AUTO) EOSINOPHILS /100 LEUKOCYTES IN BLOOD BY AUTOMATED COUNT 2.8 0.4 - 6.8 02/02 Specimen Type: BLOOD No comment entered. Ordering Provider: CORA WELLS Report Released Date/Time: Feb 03, 2024 09:44 AM Reporting Lab: [facility] HOSPITALRST. VINCENT'S CHILTONTRN [facility]OSPITALTS [facility] [address] [facility] [address] Performing Lab: [facility] HOSPITALRL TRN [address] [address] [place] CBC AND DIFF (AUTO) BASOPHILS/1 00 LEUKOCYTES IN BLOOD BY AUTOMATED COUNT 1.0 0.1 - 2.0 02/02 Specimen Type: BLOOD No comment entered. Ordering Provider: CORA WELLS Report Released Date/Time: Feb 03, 2024 09:44 AM Reporting Lab: [facility] HOSPITALRL TRN [address] [address] Performing Lab: [facility]OSPITALRRED BAY HOSPITALN [address] [address] [place] CBC AND DIFF (AUTO) NEUTROPHILS [#/VOLUME] IN BLOOD BY AUTOMATED COUNT 3.06 10*3/u L 2.20 - 7.60 02/02 Specimen Type: BLOOD No comment entered. Ordering Provider: CORA WELLS Report Released Date/Time: Feb 03, 2024 09:44 AM Reporting Lab: [facility] HOSPITALRL TRN [address] [address] Performing Lab: [facility] HOSPITALRL TRN [facility]PITALUSE[address] [address] [place] CBC AND DIFF (AUTO) LYMPHOCYTES [#/VOLUME] IN BLOOD BY AUTOMATED COUNT 1.89 10*3/u L 1.00 - 3.20 02/02 Specimen Type: BLOOD No comment entered. Ordering Provider: CORA WELLS Report Released Date/Time: Feb 03, 2024 09:44 AM Reporting Lab: [facility]OSPITALRL TRN [facility] HOSPITALUSETS [address] [address] Performing Lab: [facility] HOSPITALRST. VINCENT'S CHILTONTRN [facility]OSPITALUSE[address] [address] [place] CBC AND DIFF (AUTO) EOSINOPHILS [#/VOLUME] IN BLOOD BY AUTOMATED COUNT 0.16 10*3/u L 0.03 - 0.44 02/02 Specimen Type: BLOOD No comment entered. Ordering Provider: CORA WELLS Report Released Date/Time: Feb 03, 2024 09:44 AM Reporting Lab: [facility]OSPITALRRED BAY HOSPITALN [facility] [address] [facility] [address] Performing Lab: [facility]OSPITALRRED BAY HOSPITALN [address] [address] [place] CBC AND DIFF (AUTO) BASOPHILS [#/VOLUME] IN BLOOD BY AUTOMATED COUNT 0.06 10*3/u L 0.01 - 0.13 02/02 Specimen Type: BLOOD No comment entered. Ordering Provider: CORA WELLS Report Released Date/Time: Feb 03, 2024 09:44 AM Reporting Lab: [facility] [address] [address] Performing Lab: [facility]OSPITALRRED BAY HOSPITALN [address] [address] [place] CBC AND DIFF (AUTO) IMMATURE GRANULOCYTE S/100 LEUKOCYTES IN BLOOD BY AUTOMATED COUNT 0.3 0.0 - 0.7 02/02 Specimen Type: BLOOD No comment entered. Ordering Provider: CORA WELLS Report Released Date/Time: Feb 03, 2024 09:44 AM Reporting Lab: [facility] [address] [address] Performing Lab: [facility]OSPITALRRED BAY HOSPITALN [address] [address] [place] CBC AND DIFF (AUTO) IMMATURE GRANULOCYTE S [#/VOLUME] IN BLOOD 0.02 10*3/u L 0.00 - 0.06 02/02 Specimen Type: BLOOD No comment entered. Ordering Provider: CORA WELLS Report Released Date/Time: Feb 03, 2024 09:44 AM Reporting Lab: [facility] [address] [address] Performing Lab: [facility]ITALRRED BAY HOSPITALN [address] [address] [place] CBC AND DIFF (AUTO) NRBC % 0.0 0.0 - 0.0 02/02 Specimen Type: BLOOD No comment entered. Ordering Provider: CORA WELLS Report Released Date/Time: Feb 03, 2024 09:44 AM Reporting Lab: [facility]PITALRRED [facility]ITALN [facility]ITALUSE[address] [address] Performing Lab: [facility]ITALUSE[address] [address] [place] CBC AND DIFF (AUTO) NRBC, ABS 0.00 10*3/u L 0.00 - 0.00 02/02 Specimen Type: BLOOD No comment entered. Ordering Provider: CORA WELLS Report Released Date/Time: Feb 03, 2024 09:44 AM Reporting Lab: [facility] [address] [address] Performing Lab: [facility] [address] [address] [place] HEMOGLOBI N A1C PANEL HEMOGLOBIN A1C/HEMOGLO BIN.TOTAL IN BLOOD BY HPLC 5.7 4.0 - 5.6 02/02 H Specimen Type: BLOOD Comment: Values obtained from A1C measurement s can vary. For atypical A1C assays, a reported value of 7.0 could actually be between 6.72 and 7.28 if measured by a reference method. A reported value of 9.0 could actually be between 8.73 and 9.27. Ref: http://www. ngsp.org/[place] Pdata.asp Ordering Provider: CORA WELLS Report Released Date/Time: Feb 03, 2024 09:44 AM Reporting Lab: [facility] [address] [address] Performing Lab: [facility] [address] [address] [place] TSH THYROTROPIN [UNITS/VOLU ME] IN SERUM OR PLASMA 1.15 u[IU]/ mL 0.35 - 5.00 02/02 Specimen Type: SERUM No comment entered. Ordering Provider: CORA WELLS Report Released Date/Time: Feb 03, 2024 09:44 AM Reporting Lab: [facility] [address] [address] Performing Lab: [address] [address] [place] CALCIUM CALCIUM [MASS/VOLUM E] IN SERUM OR PLASMA 9.7 mg/dL 8.5 - 10.2 02/02 Specimen Type: SERUM No comment entered. Ordering Provider: CORA WELLS Report Released Date/Time: Feb 03, 2024 09:44 AM Reporting Lab: [address] [address] Performing Lab: [address] [address] [place] URIC ACID URATE [MASS/VOLUM E] IN SERUM OR PLASMA 5.0 mg/dL 3.5 - 7.2 02/02 Specimen Type: SERUM No comment entered. Ordering Provider: CORA WELLS Report Released Date/Time: Feb 03, 2024 09:44 AM Reporting Lab: [address] [address] Performing Lab: [address] [address] [place] RETICULOC YTES RETICULOCYT ES [#/VOLUME] IN BLOOD 1.2 0.6 - 2.0 02/02 Specimen Type: BLOOD No comment entered. Ordering Provider: CORA WELLS Report Released Date/Time: Feb 03, 2024 09:44 AM Reporting Lab: [address] [address] Performing Lab: [address] [address] [place] RETICULOC YTES RETICULOCYT ES/100 ERYTHROCYTE S IN BLOOD BY AUTOMATED COUNT 53.9 10*3/u L 30.0 - 90.0 02/02 Specimen Type: BLOOD No comment entered. Ordering Provider: CORA WELLS Report Released Date/Time: Feb 03, 2024 09:44 AM Reporting Lab: [address] [address] Performing Lab: [address] [address] [place] RETICULOC YTES HEMOGLOBIN [ENTITIC MASS] IN RETICULOCYT ES BY AUTOMATED COUNT 34.3 27.9 - 42.0 02/02 Specimen Type: BLOOD No comment entered. Ordering Provider: CORA WELLS Report Released Date/Time: Feb 03, 2024 09:44 AM [facility] [address] [facility] [address] Performing Lab: [facility] [address] [facility] [address] [facility] FERRITIN FERRITIN [MASS/VOLUM E] IN SERUM OR PLASMA 259 ng/mL 20 - 300 02/02 Specimen Type: SERUM No comment entered. Ordering Provider: CORA WELLS Report Released Date/Time: Feb 03, 2024 09:44 AM Reporting [facility] [address] [facility] [address] [facility]forming [facility]: [facility] [address] [facility] [address] [facility] Vital Signs Combined list of inpatient and outpatient Vital Signs from Department of Defense and Veterans Affairs, ranging from 12 months to all on record, depending upon the facility. Vital Sign Value Date Comments Source SYSTOLIC BLOOD PRESSURE 123 01/28/2024 10:06:02 [place] DIASTOLIC BLOOD PRESSURE 78 01/28/2024 10:06:02 [place] PULSE OXIMETRY 95 01/28/2024 10:06:02 [facility] 196 01/28/2024 [facility]:06:[facility] BMI 29kg/m2 01/28/2024 10:06:02 [facility] HEIGHT 69 01/28/2024 10:06:02 [facility] TEMPERATURE 98.4 01/28/2024 10:06:02 [facility] PULSE 75 01/28/2024 10:06:02 [facility] RESPIRATION 18 01/28/2024 10:06:02 [facility] Encounters Combined list of: 1) Encounters from Department of Veterans Affairs facilities going back up to thelast 18 months. 2) Encounters from the Department of Defense facilities going back up to 280 months. Location Location Details Encounter Type Encounter Number Reason For Visit Attending Provider ADM Date DC Date Status [facility] Encounter [id number] 04/24 [facility] Outpatient Encounter [id number] 01/01 [facility] Outpatient Encounter [id number] 01/01 [facility] EST MOD 30 MIN [id number] Diagnos is: ICD-10- CM I48.20 Chronic atrial fibrill ation, unspeci fied
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
ELSA PERSON VALERIA 02/04 [facility] Social History Combined list of available smoking, tobacco, and other social history from Department of Defense and Veterans Affairs facilities. Social History Type Response Date Comment [facility] e Tobacco smoking status [facility] VA-TOBACCO FORMER USER 024 [place] History of tobacco use VA-TOBACCO QUIT 1 5 YRS OR MORE 01/28/2024 [place]
--- NOTE | 2024-06-04 10:36 | A.OFFVIS_ITS ---
Vital Signs 06/04/24 10:37 Height 5 ft 11 in BP 122/78 Blood Pressure Location Rt brachial Position Sitting Intake Visit Reasons: follow up s/p Carotid US 05/22/24 Intake Note: 1 yr follow up carotid US 05/22/24. Pt states Left TKA in July 03, 2023. Mail Order Clerk Required: No Accompanied by: Self / Same As Patient Allergies No Known Allergies Allergy (Verified 05/23/23 11:00) HPI HPI follow up s/p Carotid US 05/22/24: Details: Very pleasant 84-year-old gentleman presents for routine surveillance follow-up regarding his carotids. He recently had a birthday and has been doing extremely well. Denies any lateralizing signs or symptoms. He has had a pacemaker placed about a year and a half ago. He remains active and continues to go to the gym 3 to 4 times a week. He is being maintained on aspirin and statin by Cardiology. Now presents for routine surveillance follow-up with noninvasive carotid testing. [facility] Medical History Gout Glaucoma BPH (benign prostatic hyperplasia) HTN (hypertension) Gall bladder stones Kidney stone Surgical History (Updated 06/04/24 @ 10:43 by SERG Ackerman) History of placement of leadless cardiac pacemaker (~2023) Hx of lithotripsy Hx of cholecystectomy Family History Father No problems noted. Mother No problems noted. Brother Dementia Brother No problems noted. Social History Patient Tobacco Use Status: Never used Tobacco Review of Systems Const All systems reviewed & are unremarkable except as noted in HPI and below Reports no additional complaints ENT Reports Normal hearing present Card Denies chest pain, Denies chest pain at rest, Denies chest pain with activity and Denies pedal edema Resp Denies cough GI Denies abdominal pain Musc Denies abnormal gait, Denies muscle cramps and Denies radiating pain into limb Skin/Breast Denies skin ulcer and Denies wounds Neuro Reports Normal hearing present and Denies abnormal gait Psych Reports no additional complaints Physical Exam Vital Signs: Last Vital Signs BP 122/78 06/04/24 10:37 Const General: cooperative, healthy appearing and comfortable Orientation/consciousness: oriented to person, oriented to place and oriented to time HEENT Head: Yes normal to inspection Neck Neck: Yes normal visual inspection Carotids: no bruits Chest Chest palpation & inspection: normal inspection of the chest Resp Effort & Inspection: normal respiratory effort and able to speak in complete sentences Auscultation: clear to auscultation bilaterally, no crackles, no rales, no rhonchi and no wheezes Cardio Rate: regular rate Rhythm: regular rhythm Heart sounds: S1 normal heart sound present and S2 normal heart sound present Bruits: no carotid bruits Peripheral pulses: Peripheral pulses 2+ throughout GI Inspection: Yes normal to inspection Skin Wounds: no wounds Hair: normal Neuro General: oriented to person, oriented to place and oriented to time Cranial nerves: Yes CN's II-XII intact bilaterally and Yes Normal hearing present Cognition (Neuro): normal cognition Motor exam (neuro): 5/5 motor strength present throughout Extrem Other: venous exam: No significant superficial varicosities or spider telangiectasias, minimal edema General: No clubbing, No cyanosis and No edema Psych Appearance: grossly normal Mental Status: mental status grossly normal Speech and movement: Normal speech and movement present Results Reviewed Results Reviewed: Carotid testing dated 05/22/2024 demonstrates right side 50-79% stenosis with a peak systolic of 2-0 7 and left-sided 0-49% stenosis. Written report reviewed only. [facility] has not dictated a completed report from date of service of 05/22/2024 and today's date is 06/04/2024. Assessment & Plan Assessment & Plan (1) Carotid stenosis, bilateral: Code(s): I65.23 - Occlusion and stenosis of bilateral carotid arteries Category: Medical Plan: In short patient has asymptomatic carotid disease. We have reviewed signs and symptoms of a stroke. We also discussed risk factor modification inclusive a healthy diet low in cholesterol. The patient will follow up with us with surveillance ultrasound of the carotids 1 year. Should there be any changes or signs or symptoms of a stroke we will be happy to see them back sooner. Thank you for allowing us to participate in this patient's care. If there are any questions or concerns please do not hesitate to contact us. Orders: Orders US carotid duplex BI 1 Year I65.23 - Occlusion and stenosis of bilateral hansen tid arteries Coding Level of Care Code Est Pt Level 4 (96739) Complex EM visit Add On G2211 Diagnoses Carotid stenosis, bilateral I65.23
[2024-06-04 10:37] VITALS: BP 122/78
== END 2024-06-04 11:01 | disposition home or self-care (01) ==
PROVIDERS: PCP Internal Medicine; Visit Provider Surgery Vascular Surgery
DX: I65.23 Occlusion and stenosis of bilateral carotid arteries (principal)
CPT/HCPCS: 99214; G2211

== ENCOUNTER → 2024-06-04 10:28 | Outpatient (BNVA) | payer MEDICARE, OTHER, SELFPAY | PROVIDERS: PCP Internal Medicine; Visit Provider Surgery Vascular Surgery | DX: I65.23 Occlusion and stenosis of bilateral carotid arteries (principal) | CPT/HCPCS: 99212 ==

== ENCOUNTER 2025-06-07 11:15 | Outpatient (REF) | payer MEDICARE, OTHER, SELFPAY ==
--- NOTE | ~2025-06-07 | US_ITS ---
EXAMINATION: US EXTRACRANIAL CAROTID DUPLEX, BILATERAL CLINICAL INFORMATION: Occlusion and stenosis of bilateral carotid arteries. COMPARISON: May 22, 2024 TECHNIQUE: Real-time ultrasound and Doppler techniques (integrating B-mode 2-D vascular images, Doppler spectral analysis and color-flow Doppler imaging) were utilized to interrogate the extracranial carotid arteries, the vertebral arteries and proximal subclavian arteries bilaterally. The degree of stenosis is determined by criteria similar to NASCET. FINDINGS: Right Side: 1. There is irregular shaped calcified atherosclerotic plaque seen in the bifurcation/proximal ICA region. 2. The common carotid artery PSV proximally is 79 cm/s and distally 73 cm/s. 3. The proximal internal carotid artery velocities are 217 cm/s systolic and 31 cm/s diastolic. 4. The proximal external carotid artery PSV is 209 cm/s. 5. The vertebral artery shows antegrade flow. 6. The subclavian artery waveforms are normal. ICA/CCA ratio: 2.75. Left Side: 1. There is a small calcified atherosclerotic plaque seen in the bifurcation/proximal ICA region. 2. The common carotid artery PSV proximally is 158 cm/s and distally 57 cm/s. 3. The proximal internal carotid artery velocities are 70 cm/s systolic and 26 cm/s diastolic. 4. The proximal external carotid artery PSV is 81 cm/s. 5. The vertebral artery shows antegrade flow. 6. The subclavian artery waveforms are normal. ICA/CCA ratio: 0.41 US/US carotid duplex BI IMPRESSION: 1. RIGHT: Irregular shaped calcified plaque representing 50-79% stenosis by ultrasound criteria. 2. LEFT: Small calcified plaque representing 0-49% stenosis by ultrasound criteria. Electronically signed by: Gigi Trujillo MD 06/07/2025 12:39 PM EST
== END 2025-06-07 11:16 | disposition home or self-care (01) ==
LOC: HO.US 11:15
PROVIDERS: Visit Provider Surgery Vascular Surgery
DX: I65.23 Occlusion and stenosis of bilateral carotid arteries (principal)
CPT/HCPCS: 93880

== ENCOUNTER → 2025-06-07 11:18 | Outpatient (BNV) | payer MEDICARE, OTHER, SELFPAY | PROVIDERS: Visit Provider Radiology Diagnostic Radiology | DX: I65.23 Occlusion and stenosis of bilateral carotid arteries (principal) | CPT/HCPCS: 93880 ==